=== PATIENT | female | born 1930 | race Caucasian/White ===

== ENCOUNTER → 2016-06-16 | Outpatient (CLI) | payer OTHER ==
[~2016-06-16] MED LIST: CELEBREX200 MG PO; COMTAN200 MG PO; MULTIPLE VITAMI1 CAP PO; NORCO 325 MG-51 TAB PO; OCUVITE1 TA1 PO; OMEPRAZOLE40 MG PO; PAXIL20 MG PO; PRILOSEC20 M1 PO; SINEMET 25-2501 TA1 PO; SINEMET 25-2501 TAB PO; VITAMIN D400 I1 PO; [UNRECOGNIZED DRUG - REMARK]
--- NOTE | ~2016-06-16 | WRIGHTHP ---
[place], [place] PATIENT HISTORY AND PHYSICAL EXAM NAME: [facility]: [id number] UNIT #: [id number] ROOM: DOCTOR: CARINE LynnMORRIS BIRTHDATE: [birth year] DOS: 06/16/2016 CHIEF COMPLAINT: The patient has been seen in our wound center before for an open ulcer of the left foot on the third toe secondary to severe callus formation. She comes in today with a chief complaint of that callus reoccurring on that left toe as well as an open ulcer of the left ankle on the lateral side. HISTORY OF PRESENT ILLNESS: This is an 86-year-old female with severe Parkinson disease, severe debility and difficulty ambulating, who apparently was recently admitted and discharged from the hospital after a fall secondary to severe debility. It was felt that she would benefit from rehabilitation at a detention facility; however, the patient was adamant about going home. She does go home, she lives at home by herself now and her neighbor can come and help her put the dressings on. She has an open ulcer at the left ankle. It is actually more of an abrasion from her fall. She has been using bacitracin on it and it is somewhat tender to touch. No fevers or chills are noted. She does report that she was able to get new shoes, but she does not quite like them. She has a platform power technician who comes to her house to take care of podiatric complaints for her; however, she says that the callus was not trimmed that she is aware of. She offers no other specific complaints. PHYSICAL EXAMINATION: VITAL SIGNS: Stable. Blood pressure is 140/60, pulse of 80, respirations 16, temperature is 98.2. EXTREMITIES: She has a wound measured on the lateral side of the left ankle that is measuring 0.2 x 0.6 x 0.1, it is fairly superficial. There is no sign of cellulitis or purulence. It is mildly tender to touch. There is minimal necrotic tissue present in the base of the wound, otherwise, it looks fairly clean. There is also a hyperkeratotic callus that is protruding from the left foot at the tip of the third toe that has a slight discoloration from what appears to be repetitive bleeding, periodically, it is not open at this time. She did request for me to trim the callus. After this was cleansed with a sterile alcohol wipe, a #15 blade was used to trim the callus down. I still do not see any open areas after this was done. The wound does not seem to be open at this time. Her ABIs are 1.03 on the left and 1.01 on the right. She has some neuropathy noted on her feet during the foot assessment. Pedal pulses are palpable. Toes are warm. ASSESSMENT AND PLAN: Abrasion of the left lateral ankle, use Bactroban empirically and cover it with foam and have her change it every other day. As far as her repetitive callus, it does cause her discomfort when it gets quite thick, this was trimmed today. She should have this trimmed periodically by Podiatry to avoid it becoming so thickened in the future. The patient is to follow up with us in one week. [place], [place] PATIENT HISTORY AND PHYSICAL EXAM NAME: ANETTE QUINTANA UNIT #: [id number] ROOM: DOCTOR: MORRIS HAWK M.D. BIRTHDATE: [birth year] MORRIS HAWK MD CM:HISPHYS:PATIENT HISTORY AND PHYSICAL EXAMINATION [id number] MORRIS HAWK M.D. 06/16/16 1623 interface
== END ==
LOC: WOUNDCARE 01:41
DX: L97.321 Non-pressure chronic ulcer of left ankle limited to breakdown of skin (principal); S90.512D Abrasion, left ankle, subsequent encounter; L97.521 Non-pressure chronic ulcer of other part of left foot limited to breakdown of skin; G20 Parkinson's disease; L84 Corns and callosities; X58.XXXD Exposure to other specified factors, subsequent encounter

== ENCOUNTER → 2016-06-23 | Outpatient (CLI) | payer OTHER ==
--- NOTE | ~2016-06-23 | PR ---
[place], [place] PROGRESS NOTE NAME: [facility] [id number] UNIT #: [id number] ROOM: DOCTOR: MORRIS HAWK M.D. BIRTHDATE: [birth year] DOS: 06/23/2016 CHIEF COMPLAINT: Followup of ulcer of the left lateral ankle as well as a chronic callus of the tip of the third toe on the left foot. She comes in today without any specific complaints. We were using an antibiotic ointment as well as a foam over her ankle wound. She noticed a little bit of drainage on the pad, but she says home health has not been able to get the foam that was ordered, so they have just been using Band-Aids. No fevers or chills are noted. OBJECTIVE: VITAL SIGNS: Temperature is 97.8, pulse is 68, respirations 18, blood pressure is 120/62. WOUND EXAMINATION: The wounded area is measuring approximately the same at 0.2 x 0.6 x 0.1. It looks really good. It appears almost healed. The redness seems improved as well, and there is no sign of an acute infection. No debridement was done. ASSESSMENT AND PLAN: Abrasion of the left lateral ankle. I would at this time just continue to use the foam without any topicals for now and have her follow up with us in one week. MORRIS HAWK MD CM:PNTRANS [phone] MORRIS HAWK M.D. 06/24/16 033 interface
== END ==
LOC: WOUNDCARE 04:43
DX: S90.512D Abrasion, left ankle, subsequent encounter (principal); L84 Corns and callosities; X58.XXXD Exposure to other specified factors, subsequent encounter

== ENCOUNTER → 2016-07-02 | Outpatient (CLI) | payer OTHER ==
--- NOTE | ~2016-07-02 | PR ---
[place], [place] PROGRESS NOTE [id number] UN[facility] #: [id number] ROOM: DOCTOR: MORRIS HAWK M.D. BIRTHDATE: [birth year] DOS: 07/02/2016 CHIEF COMPLAINT: Followup an abrasion of the left lateral ankle as well as recurrent chronic callus at the tip of the third toe. She thinks that the wound has healed. She is having no specific complaints with the ankle. It is not draining anything. She does have recurrent callus formation on the tip of the third digit of the left toe and would like me to pare this down for her today. It does cause some discomfort. PHYSICAL EXAMINATION: VITAL SIGNS: She is afebrile, pulse is 64, respirations 18, blood pressure is 118/60. WOUND EXAMINATION: The wound on the left lateral leg is healed. She does have a callused area that was on the third digit of the left toe, at the very tip this plantar aspect. This was pared down with a #15 blade. There was no open wound underneath. ASSESSMENT AND PLAN: Healed abrasion and recurrent callus pared down today in the wound clinic. The patient will be discharged today and is to follow up if need be. MORRIS HAWK MD CM:PNTRANS [id number] MORRIS HAWK M.D. 07/03/16 0938 interface
== END ==
LOC: WOUNDCARE 02:49
DX: S90.512D Abrasion, left ankle, subsequent encounter (principal); L84 Corns and callosities; X58.XXXD Exposure to other specified factors, subsequent encounter

== ENCOUNTER 2016-08-25 13:24 | Inpatient (IN) | payer OTHER ==
[~2016-08-25] VITALS: Ht 172.7 cm; Wt 89.0 kg
--- NOTE | ~2016-08-25 | WRIGHTHP ---
[place], [place] PATIENT HISTORY AND PHYSICAL EXAM [id number] UNIT #: [id number] ROOM: 411 DOCTOR: PREM RADFORD MD BIRTHDATE: [birth year] DOS: 08/25/2016 HISTORY OF PRESENT ILLNESS: The patient is an 86-year-old female with a past medical history of: 1. Parkinson's disease. 2. Adult failure to thrive. 3. Bilateral knee replacements. 4. Left hip replacement. 5. Coronary artery disease of the [place] vessels, by history. The patient presented to the Emergency Department with 1-hour complaints of epigastric severe sharp pains radiating into the back with some nausea but no vomiting, no diaphoresis and no shortness of breath. The patient says that the pains were resolving on its own when the ambulance arrived. The patient also had some tingling and sensation in her jaw. After initial evaluation in the Emergency Department, the patient was recommended for admission and further management. The patient has been seen by Dr. Jim Sanchez now, the brush worker. No dizziness or fainting episodes. No other GI or urinary symptoms. The patient is completely asymptomatic after admission to the hospital. REVIEW OF SYSTEMS: LUNGS: No shortness of breath or wheezing. GASTROINTESTINAL: The patient had some nausea, which has resolved. Abdominal pains, epigastric pains have also resolved. CARDIOVASCULAR SYSTEM: No chest pains or palpitations. FAMILY HISTORY: Noncontributory. SOCIAL HISTORY: The patient lives by herself. Denies smoking cigarettes, alcohol or any drug abuse. HOME MEDICATIONS: The patient takes omeprazole, Sinemet and Comtan. ALLERGIES: KNOWN ALLERGIES TO PENICILLIN. PHYSICAL EXAMINATION: GENERAL: Alert and oriented x 3, in no visible distress. HEENT AND NECK: Extraocular movements are intact. Sclerae are anicteric. Oral mucosa is moist and clean. No obvious facial weakness. Neck is supple without any lymphadenopathy. No thyromegaly. No JVD. No carotid arterial bruits. LUNGS: Clear to auscultation. No wheezing. No rhonchi. CARDIOVASCULAR SYSTEM: Heart rate is regular in rate and rhythm. S1 and S2 normally audible. No significant murmur or any other abnormal cardiac sounds. ABDOMEN: Soft, nontender. No obvious organomegaly. Bowel sounds are present. No obvious herniation. EXTREMITIES: Without significant cyanosis or edema. Warm to touch. CENTRAL NERVOUS SYSTEM: Alert and oriented x 3. Cranial nerves II-XII are intact. Speech is normal. The patient is able to move all extremities. Normal muscle strength. Deep tendon reflexes are equal on both sides. Plantars were [place], [place] PATIENT HISTORY AND PHYSICAL EXAM NAME: ANETTE QUINTANA UNIT #: [id number] ROOM: 411 DOCTOR: PREM RADFORD MD BIRTHDATE: [birth year] downgoing. IMPRESSION AND PLAN: 1. The patient with severe epigastric sharp pains for about an hour from uncertain etiology. The patient has been admitted and cardiac enzymes are being performed. Dr. Jim Sanchez, the brush worker is also following her. The pains are not typical for coronary artery disease or angina. The patient has some history of coronary artery disease in the past. 2. Abnormal chest x-ray, which will be further evaluated with a PA and lateral chest x-ray tomorrow. 3. Parkinson's disease, treated with Sinemet and Comtan, which is being continued and I am consulting physical therapy because she does have a history of falls in the past. PREM RADFORD MD CM:HISPHYS:PATIENT HISTORY AND PHYSICAL EXAMINATION 13 46 PREM RADFORD MD 08/25/161846 interface
--- NOTE | ~2016-08-25 | DS ---
[place], [place] DISCHARGE SUMMARY NAME: ANETTE QUINTANA UNIT #: [id number] ROOM: 411 DOCTOR: PREM RADFORD MD BIRTHDATE: [birth year] DOS: 08/26/2016 DISCHARGE DIAGNOSES: 1. The patient with severe epigastric pain going into her back, ruled out for myocardial infarction with serial cardiac enzymes and seen by director learning services. 2. Parkinson disease. 3. Urinary tract infection with heavy gram-negative bacilli. 4. Coronary artery disease of the [place] vessels by history. 5. History of left hip replacement. 6. Bilateral knee replacements. 7. Adult failure to thrive. HOSPITAL COURSE: The patient presented to the Emergency Department at [facility] with 1 hour complaints of severe epigastric, severe sharp pain radiating at the back and the jaw with some nausea, but no diaphoresis, no shortness of breath. The patient's pain was resolving when the ambulance arrived. The patient was admitted and ruled out for myocardial infarction with serial cardiac enzymes and was also seen by director learning services who did not consider patient's pains to be cardiac. The patient with a urinary tract infection with urine cultures growing more than 100,000 colonies of heavy gram-negative bacilli, for which she has been started on treatment with Bactrim DS and she will follow up with her PCP in less than a week. No leukocytosis. 1. Parkinson disease with disability. The patient worked with physical therapy. 2. Left hip replacement, bilateral knee replacement and adult failure to thrive. 3. Coronary artery disease of the [place] vessels by history without any chest pains anymore. The patient was admitted when she presented to the Emergency Department 1 hour complaints of epigastric pains, which had resolved. All cardiac enzymes came back to be negative and director learning services, Dr. Jim Sanchez decided against any further cardiac workup because the complaints were not typical for angina. The patient was found to have urinary tract infection with heavy gram-negative bacilli, for which she is being started on Bactrim DS b.i.d. for a week and she will follow up with her PCP. Parkinson disease, chronically on Sinemet and Comtan, which was continued during her hospital stay and again she will take it at home after discharge. There was abnormality on the chest x-ray, which was clarified with the chest x-ray, PA and lateral, which came out to be normal. LABORATORY DATA: All cardiac enzymes were negative. DISCHARGE MANAGEMENT: Bactrim DS b.i.d. for 1 week, Comtan 200 mg b.i.d., Sinemet 25/250 every 6 hours. [place], [place] DISCHARGE SUMMARY NAME: ANETTE QUINTANA UNIT #: [id number] ROOM: 411 DOCTOR: PREM RADFORD MD BIRTHDATE: [birth year] PREM RADFORD MD CM:PIO [id number] 00 PREM RADFORD MD 08/26/16 190 interface
[2016-08-25 13:24] VITALS: BP 146/44
[2016-08-25 13:42] LABS: BASO % 0.6 % (0.0-1.0); EOS # 0.1 10*3/uL (0.0-0.4); EOS % 2.6 % (1.0-4.0); HEMATOCRIT 42.3 % (37.0-47.0); HEMOGLOBIN 13.4 g/dl (12.0-16.0); LYMPH # 1.4 10*3/uL (1.3-4.4); LYMPH % 28.3 % (27.0-41.0); MEAN CELL VOLUME 98.4 fl (81.0-99.0); MEAN CORPUSCULAR HGB 31.2 pg (27.0-31.0); MEAN CORPUSCULAR HGB CONC 31.7 g/dl (33.0-37.0); MEAN PLATELET VOLUME 9.6 fl (9.6-12.3); MONO # 0.3 10*3/uL (0.1-1.0); MONO % 6.6 % (3.0-9.0); NEUT # 3.1 10*3/uL (2.3-7.9); NEUT % 61.7 % (47.0-73.0); PLATELET COUNT AUTOMATED 192 10*3/uL (130-400); RED CELL DISTRI WIDTH 12.8 % (0-14.5)
[2016-08-25 13:50] LABS: PROTHROMBIN TIME 10.3 SECONDS (9.0-12.4)
[2016-08-25 13:59] LABS: ALBUMIN 3.4 gm/dl (3.1-4.5); ALKALINE PHOSPHATASE 93 U/L (45-117); BILIRUBIN, TOTAL 0.6 mg/dl (0.2-1.0); BUN 20 mg/dl (7-24); CARBON DIOXIDE 29 mmol/L (21-32); CHLORIDE 110 mmol/L (98-107); EST GLOM FILT AFRICAN AMERICAN 52 ml/min; GLUCOSE 103 mg/dL (65-99); MAGNESIUM 1.9 mg/dL (1.5-2.1); SGOT/AST 70 IU/L (3-35); SGPT/ALT 12 U/L (12-78); SODIUM 146 mmol/L (136-145); TOTAL PROTEIN 6.9 gm/dL (6.4-8.2)
[2016-08-25 14:01] LABS: TROPONIN I < 0.015 ng/ml (<0.045)
[2016-08-25 16:00] VITALS: BP 148/62
[2016-08-25 17:32] LABS: BILIRUBIN NEGATIVE (NEGATIVE); BLOOD TRACE-LYSED (NEGATIVE); CLARITY SL CLOUDY (CLEAR); COLOR YELLOW (YELLOW); GLUCOSE NEGATIVE (NEGATIVE); KETONE NEGATIVE (NEGATIVE); LEUKO ESTERASE 2+ (NEGATIVE); NITRITE POSITIVE (NEGATIVE); PH 5.5 (5.0-9.0); PROTEIN NEGATIVE (NEGATIVE); SPECIFIC GRAVITY <= 1.005 (1.005-1.030); UROBILINOGEN 0.2 E.U./dl (0.2-1.0)
[2016-08-25 17:46] LABS: BACTERIA 3+; EPITHELIAL CELLS 0-2; RBC 0-2 rbc/hpf (0-2); URINE REFLEX COMMENT YES (NO)
[2016-08-25 21:12] VITALS: BP 158/54
[2016-08-26] VITALS: BP 153/54
[2016-08-26 07:17] LABS: BASO % 0.4 % (0.0-1.0); EOS # 0.2 10*3/uL (0.0-0.4); EOS % 3.3 % (1.0-4.0); HEMATOCRIT 40.9 % (37.0-47.0); LYMPH # 1.4 10*3/uL (1.3-4.4); LYMPH % 25.9 % (27.0-41.0); MEAN CELL VOLUME 97.8 fl (81.0-99.0); MEAN CORPUSCULAR HGB 31.1 pg (27.0-31.0); MEAN CORPUSCULAR HGB CONC 31.8 g/dl (33.0-37.0); MEAN PLATELET VOLUME 9.7 fl (9.6-12.3); MONO # 0.5 10*3/uL (0.1-1.0); MONO % 8.3 % (3.0-9.0); NEUT # 3.4 10*3/uL (2.3-7.9); NEUT % 61.9 % (47.0-73.0); PLATELET COUNT AUTOMATED 200 10*3/uL (130-400); RED BLOOD COUNT 4.18 10*6/uL (4.10-5.10); RED CELL DISTRI WIDTH 12.9 % (0-14.5); WHITE BLOOD COUNT 5.5 10*3/uL (4.8-10.8)
[2016-08-26 08:00] VITALS: BP 144/57
[2016-08-26 12:00] VITALS: BP 171/57
[2016-08-26 16:00] VITALS: BP 129/42
[2016-08-26] MEDS ORDERED: BACTRIM DS 8001 TAB PO (17:05)
== END 2016-08-26 17:25 | disposition home or self-care (01) | DRG 206 ==
LOC: ED 13:24 → 4E 14:18 → EDHOLD 14:18 → 4E 14:54
PROVIDERS: Internal Medicine; Student in an Organized Health Care Education/Training Program
DX: M94.0 Chondrocostal junction syndrome [Tietze] (principal); G20 Parkinson's disease; N39.0 Urinary tract infection, site not specified; R10.13 Epigastric pain; E86.0 Dehydration; K21.9 Gastro-esophageal reflux disease without esophagitis; B96.89 Other specified bacterial agents as the cause of diseases classified elsewhere; I25.10 Atherosclerotic heart disease of native coronary artery without angina pectoris; Z96.642 Presence of left artificial hip joint; R62.7 Adult failure to thrive; Z96.653 Presence of artificial knee joint, bilateral; Z79.899 Other long term (current) drug therapy; Z88.0 Allergy status to penicillin

== ENCOUNTER 2016-09-21 18:46 | Emergency (ER) | payer OTHER ==
[~2016-09-21] VITALS: Wt 88.0 kg
[2016-09-21 18:46] VITALS: BP 121/82
[~2016-09-21 18:46] MED LIST changes: +BACTRIM DS 8001 TAB PO
== END 2016-09-21 20:40 | disposition home or self-care (01) ==
LOC: ED 18:46
DX: S00.01XA Abrasion of scalp, initial encounter (principal); K21.9 Gastro-esophageal reflux disease without esophagitis; Z90.49 Acquired absence of other specified parts of digestive tract; Z88.0 Allergy status to penicillin; W18.00XA Striking against unspecified object with subsequent fall, initial encounter; Y93.89 Activity, other specified; Y92.9 Unspecified place or not applicable; Y99.9 Unspecified external cause status

== ENCOUNTER 2017-02-12 12:13 | Inpatient (IN) | payer OTHER ==
[~2017-02-12] VITALS: Ht 170.2 cm; Wt 84.3 kg
[2017-02-12] VITALS (7 sets, daily range): BP systolic 144–172; BP diastolic 50–68
--- NOTE | ~2017-02-12 | PR ---
[place], [place] PROGRESS NOTE NAME: ANETTE QUINTANA UNIT #: [id number] ROOM: [place] DOCTOR: PREM RADFORD MD BIRTHDATE: [birth year] DOS: 02/13/2017 OBJECTIVE: VITAL SIGNS: Blood pressure 149/54, heart rate 84 beats, breathing 18 times per minute, temperature 98 degrees Fahrenheit. GENERAL APPEARANCE: Obesity and generalized weakness and patient appears agitated. HEENT AND NECK: Exam within normal limits. CARDIOVASCULAR SYSTEM: Heart rate is regular in rate and rhythm. S1 and S2 normally audible. LUNGS: Clear to auscultation. ABDOMEN: Soft, nontender. No obvious organomegaly. Bowel sounds are present. EXTREMITIES: Without significant cyanosis or edema. IMPRESSION: 1. Patient with sundowning and ICU psychosis and she is feeling that nurses are conspiring against her and she wants to go home. I am getting a psych consult and giving her 20 mg of Geodon IM. 2. One episode of rapid atrial fibrillation, which has resolved. Patient is in normal sinus rhythm. The episode of hypertension and atrial fibrillation with rapid ventricular response could have been induced by dose of epinephrine that she received for Bactrim allergy. 3. ALLERGY TO BACTRIM AND SKIN RASH, resolved with treatment. 4. History of coronary artery disease without chest pains. 5. Parkinson's disease, being treated. Patient working with physical therapy. 6. Echocardiogram pending because patient is too suspicious and paranoid to get the echocardiogram performed. We will try again in half an hour and see if we can get an echocardiogram to look for blood clots. PREM RADFORD MD CM:PNTRANS 1822 PREM RADFORD MD 02/14/1721 interface
--- NOTE | ~2017-02-12 | WRIGHTHP ---
[place], [place] PATIENT HISTORY AND PHYSICAL EXAM NAME: ANETTE QUINTANA [facility] #: [id number] UNIT #: [id number] ROOM: [place] [address] DOCTOR: PREM RADFORD MD BIRTHDATE: [birth year] DOS: 02/12/2017 HISTORY OF PRESENT ILLNESS: The patient is an 86-year-old female with a past medical history of: 1. Parkinson's disease. 2. Coronary artery disease of the [place] vessels. 3. History of left hip replacement. 4. Bilateral knee replacements. 5. Adult failure to thrive. 6. Gastroesophageal reflux disease and esophagitis. The patient presented to the Emergency Department at [facility] when she developed a skin rash from Bactrim-DS, which was given to her for recent urinary tract infection. The patient was given epinephrine and prednisone for treatment and later on in the Emergency Department, she was found to be in atrial fibrillation with rapid ventricular response of about 170 beats per minute. The patient's blood pressure was also found to be elevated at 172 systolic over 67 diastolic. The patient was treated with IV diltiazem and the heart rate improved and she came back to normal sinus rhythm. The patient says she felt some chest pains and felt dizzy at this time. No fainting episodes. No nausea, vomiting, diarrhea or constipation. REVIEW OF SYSTEMS: LUNGS: No increasing shortness of breath or wheezing. GASTROINTESTINAL: No nausea, vomiting, diarrhea, constipation. CARDIOVASCULAR: The patient developed some palpitations and chest pains sometime after she was given epinephrine, but now she is asymptomatic. FAMILY HISTORY: Noncontributory. ALLERGIES: KNOWN ALLERGIES TO PENICILLIN AND SULFA WHICH IS BACTRIM. HOME MEDICATIONS: Pyridium, omeprazole, Sinemet. PHYSICAL EXAMINATION: GENERAL: Alert, oriented x 3, in no visible distress. Generalized weakness. HEENT AND NECK: Extraocular movements are intact. Sclerae are anicteric. Oral mucosa is moist and clean. No obvious facial weakness. Neck is supple without any lymphadenopathy. No thyromegaly. No JVD. No carotid arterial bruits. LUNGS: Clear to auscultation. No wheezing. No rhonchi. CARDIOVASCULAR SYSTEM: Heart rate is regular in rate and rhythm. S1 and S2 normally audible. No significant murmur or any other abnormal cardiac sounds. ABDOMEN: Soft, nontender. No obvious organomegaly. Bowel sounds are present. No obvious herniation. EXTREMITIES: Without significant cyanosis or edema. Warm to touch. CENTRAL NERVOUS SYSTEM: Alert and oriented x 3. Cranial nerves II-XII are intact. Speech is normal. The patient is able to move all extremities. Normal muscle strength. Deep tendon reflexes are equal on both sides. Plantars were downgoing. IMPRESSION: [place], [place] PATIENT HISTORY AND PHYSICAL EXAM NAME: ANETTE QUINTANA UNIT #: [id number] ROOM: [place] [address] DOCTOR: PRABHAKAR GIORDANO,PREM Stokes BIRTHDATE: [birth year] 1. The patient with old age and adult failure to thrive. I will consult Physical Therapy. 2. The patient with atrial fibrillation with rapid ventricular response, which may have been induced after she was given epinephrine for acute drug reaction to Bactrim-DS. The patient's tachycardia and atrial fibrillation resolved after she was given IV Cardizem and she is in a normal sinus rhythm now. 3. Acute hypertensive reaction, probably to epinephrine. Blood pressures will be monitored and treated. 4. Parkinson disease, old age and adult failure to thrive. The patient to work with physical therapy. We will also take bedsore precautions, turn her every 2 hours and use an air mattress. 5. For urinary tract infection, I will keep her on ciprofloxacin. There is no leukocytosis, but she has some left shift with neutrophils 96% on CBC. 6. Cardiology consult obtained. We will watch the patient closely in the ICU for now because of her earlier tachycardia along with atrial fibrillation. PREM RADFORD MD CM:HISPHYS:PATIENT HISTORY AND PHYSICAL EXAMINATION 02 49 PREM RADFORD MD 02/12/172250 interface
--- NOTE | ~2017-02-12 | PR ---
[place], [place] PROGRESS NOTE NAME: ANETTE QUINTANA UNIT #: [id number] ROOM: [facility] DOCTOR: AIMEE NAVARRETE MD BIRTHDATE: [birth year] DOS: SUBJECTIVE: The patient was admitted after developing a drug rash and near anaphylaxis, was placed on IV steroids and admitted to the floor. She became quite confused, combative, paranoid and agitated and tried to throw a walker at the nursing staff. She was given Geodon, which seems to have calmed her down. She also was moved to a room with a large window. This morning she woke up from sleep. She was startled when she woke up. She did not recognize me and did remember the events leading to her admission, but not about her confused state of mind yesterday. When asked where she was, she was pointing to the aide that she was at her house. She denies having any chest pains, palpitations, does not have any fever or chills, does not have any abdominal pain, nausea, emesis. I was able to reorient her and she remembered she was in the hospital. OBJECTIVE: VITAL SIGNS: Graphic trend shows a pressure 134/61, pulse of 60, respirations 19, temperature 98.7. LUNGS: Diminished breath sounds. No wheezes, rales, rhonchi heard. HEART: Regular. ABDOMEN: Obese, soft, nontender. EXTREMITIES: Without any edema. ASSESSMENT AND PLAN: 1. Drug reaction to Bactrim, which is now resolved. We will discontinue IV steroids. 2. Psychosis with metabolic encephalopathy, possibly from the UTI as well as IV steroids. IV antibiotics have been started and discontinue steroids. The patient does not have a rash. 3. Benign hypertension. Blood pressures are controlled. She had 1 episode of atrial fibrillation, which has since resolved. She is on Xarelto. Cardiology to make the decision on whether the patient should go home on this medicine. AFib could have been from the stress from the drug reaction as well as the epinephrine. 4. Urinary tract infection with gram-negative bacteria, identification is not available. The patient is placed on IV antibiotics. We will wait until the final cultures have come back to decide on discharge planning. [place], [place] PROGRESS NOTE NAME: ANETTE QUINTANA UNIT #: [id number] ROOM: [facility] DOCTOR: AIMEE NAVARRETE MD BIRTHDATE: [birth year] AIMEE NAVARRETE MD CM:PNTRANS [id number] AIMEE NAVARRETE MD 02/14/17 0841 interface
--- NOTE | ~2017-02-12 | PR ---
[place], [place] PROGRESS NOTE NAME: ANETTE QUINTANA UNIT #: [id number] ROOM: 410 DOCTOR: AIMEE NAVARRETE MD BIRTHDATE: [birth year] DOS: 02/15/2017 SUBJECTIVE: The patient feels okay this morning. She does not have any episodes of confusion. OBJECTIVE: VITAL SIGNS: Graphic trend shows a pressure of 154/68, pulse of 68, respirations 20, temperature 98.0. LUNGS: Diminished breath sounds, clear. HEART: Regular. ABDOMEN: Obese, soft, nontender. EXTREMITIES: Without any edema. LABORATORY DATA: Glucose 140, BUN 29, creatinine 1.05. Electrolytes were normal. MRSA of the nares negative. Urine culture shows Proteus mirabilis. ASSESSMENT AND PLAN: 1. Urinary tract infection, Proteus mirabilis, on IV Cipro. 2. Metabolic encephalopathy, seems to be resolving, possibly from underlying urinary tract infection. 3. Drug rash, which has resolved. 4. Paroxysmal atrial fibrillation, already on medications. Social service has been consulted for possible SNF placement. AIMEE NAVARRETE MD CM:PNTRANS [id number] AIMEE NAVARRETE MD 02/17/17 0451 interface
--- NOTE | ~2017-02-12 | PR ---
[place], [place] PROGRESS NOTE NAME: ANETTE QUINTANA UNIT #: [id number] ROOM: 410 DOCTOR: AIMEE NAVARRETE MD BIRTHDATE: [birth year] DOS: 02/16/2017 SUBJECTIVE: The patient is doing well, does not have any new complaints, did not have any periods of confusion in the last 24 hours. OBJECTIVE: VITAL SIGNS: Graphic trend shows a pressure 163/56, pulse of 60, respirations 18, temperature 97.9. LUNGS: Clear. HEART: Regular. ABDOMEN: Soft. EXTREMITIES: Without any edema. LABORATORY DATA: BMP this morning, glucose 140, BUN 29, creatinine 1.05, GFR 50, sodium 142, potassium 4.4. MRSA of the nares was negative. Urine culture: Proteus mirabilis. ASSESSMENT AND PLAN: 1. The patient with drug reaction, which has resolved. 2. Metabolic encephalopathy from urinary tract infection for which she is on IV antibiotics, encephalopathy has resolved. 3. Adult failure to thrive. The patient has refused fpc placement. The plan is to discharge her to home tomorrow. 4. For paroxysmal atrial fibrillation, on long-term use of anticoagulants, as per Cardiology to be continued. Discussed with case management. Plan is to discharge her to home with [facility] and PT, OT. AIMEE NAVARRETE MD CM:PNTRANS [id number] AIMEE NAVARRETE MD 02/17/17 0113 interface
--- NOTE | ~2017-02-12 | DS ---
Telephone, [place] DISCHARGE SUMMARY NAME: [id number] UNIT #: [id number] ROOM: 410 DOCTOR: PREM RADFORD MD BIRTHDATE: [birth year] DOS: 02/17/2017 DISCHARGE DIAGNOSES: 1. Paroxysmal atrial fibrillation. The patient started on anticoagulation. 2. Urinary tract infection with resistant Proteus mirabilis. 3. Delirium and mental confusion and psychosis, resolved with treatment. 4. Benign essential hypertension. 5. Drug allergy to BACTRIM with allergic reaction. 6. Parkinson's disease. 7. Old age and advanced disability and failure to thrive. 8. Coronary artery disease of [place] vessels. 9. History of left hip replacement. 10. History of bilateral knee replacements. 11. Gastroesophageal reflux disease and esophagitis. HOSPITAL COURSE: The patient developed a skin rash from BACTRIM-DS and showed up in the Emergency Department. The patient had a urinary tract infection, which was being treated with BACTRIM. The patient initially given epinephrine and then prednisone and then she was found to be in atrial fibrillation with hypertension. Heart rate had increased to 170 beats per minute and blood pressure was found to be elevated to 172/67. The patient was started on IV diltiazem and heart rate improved and patient went back in to normal sinus rhythm. Dr. Sanchez, the silk screen printer machine decided to start anticoagulation with Xarelto and also added metoprolol to the treatment and blood pressure and heart rates have been stable. Case discussed with Dr. Sanchez who has recommended that Xarelto should be continued. Acute psychosis with delirium resulting from E. coli infection and urinary tract infection and cystitis, which have resolved while the patient was being treated with ciprofloxacin. Parkinson's disease and adult failure to thrive. The patient worked with Physical Therapy and she is walking with the help of a walker. The patient lives at home with the help of her family. We took bedsore precautions. Parkinson's disease, being treated with Sinemet. LABORATORY DATA: BUN and creatinine 29 and 1.04, blood sugar 140. Normal serum electrolytes. Urine culture results as mentioned above. Cardiac enzymes were negative. DISCHARGE MANAGEMENT: Xarelto 20 mg daily, metoprolol 25 mg daily, omeprazole 40 mg a day, Sinemet 25/250 mg every 6 hours, liquid tears eye drops 1 drop each eye q. 1 hour as needed, ciprofloxacin 500 mg twice a day for a week. FOLLOWUP: With me in my office this week. Telephone, [place] DISCHARGE SUMMARY NAME: ANETTE QUINTANA UNIT #: [id number] ROOM: 410 DOCTOR: PREM RADFORD MD BIRTHDATE: [birth year] PREM RADFORD MD CM:PIO [id number] PREM RADFORD MD 02/17/173 interface
--- NOTE | 2017-02-12 12:33 | NUR ---
PT RESTING ON CART PULSE OX AT 100% VOICES NO COMPLAINTS. TAPAN DIXON RN.
[2017-02-12 14:18] LABS: BILIRUBIN NEGATIVE (NEGATIVE); BLOOD TRACE-INTACT (NEGATIVE); CLARITY SL CLOUDY (CLEAR); COLOR YELLOW (YELLOW); GLUCOSE NEGATIVE (NEGATIVE); KETONE NEGATIVE (NEGATIVE); LEUKO ESTERASE 3+ (NEGATIVE); NITRITE POSITIVE (NEGATIVE); PH 6.5 (5.0-9.0); SPECIFIC GRAVITY <= 1.005 (1.005-1.030); UROBILINOGEN 0.2 E.U./dl (0.2-1.0)
[2017-02-12 14:30] LABS: BACTERIA 3+; EPITHELIAL CELLS 0-2; WBC 51-100 wbc/hpf (0-5)
[2017-02-12] MEDS ORDERED: EPIPEN 2-P0.3 MG/0.3 IJ (14:40)
[2017-02-12] MEDS ORDERED: PYRIDIUM200 M1 PO (14:40)
[2017-02-12] MEDS ORDERED: CIPRO500 MG PO (14:40)
[2017-02-12] MEDS ORDERED: PREDNISONE10 MG PO (14:42)
--- NOTE | 2017-02-12 15:03 | NUR ---
PT TRIED CALLING FAMILY FOR A RIDE HOME. STATES NO ONE IS HOME AND THE NEIGHBORS HAVE COMPANY. PT IS GOING TO FINISH EATING AND HTEN TRY FOR A RIDE IN A FEW MINUTES. TAPAN DIXON RN.
[2017-02-12 16:52] LABS: ALBUMIN 3.4 gm/dl (3.1-4.5); ALKALINE PHOSPHATASE 72 U/L (45-117); BUN 19 mg/dl (7-24); CHLORIDE 109 mmol/L (98-107); CREATININE 1.14 mg/dL (0.55-1.02); POTASSIUM 3.8 mmol/L (3.5-5.1); SGOT/AST 15 IU/L (3-35); SGPT/ALT 8 U/L (12-78); SODIUM 139 mmol/L (136-145)
[2017-02-12 16:55] LABS: TROPONIN I < 0.015 ng/ml (<0.045)
[2017-02-12 17:44] LABS: HEMATOCRIT 41.3 % (37.0-47.0); HEMOGLOBIN 13.3 g/dl (12.0-16.0); MEAN CORPUSCULAR HGB 30.9 pg (27.0-31.0); MEAN CORPUSCULAR HGB CONC 32.2 g/dl (33.0-37.0); MEAN PLATELET VOLUME 9.7 fl (9.6-12.3); PLATELET COUNT AUTOMATED 185 10*3/uL (130-400); RED CELL DISTRI WIDTH 12.6 % (0-14.5); WHITE BLOOD COUNT 9.3 10*3/uL (4.8-10.8)
[2017-02-12 18:15] LABS: PLATELET SUFFICIENCY NORMAL (NORMAL); TOTAL CELLS COUNTED 100 #CELLS
--- NOTE | 2017-02-12 18:50 | NUR ---
A 86, admitted to ICCU, under the services of Dr. PRABHAKAR GIORDANO,PREM Stokes with a diagnosis of UTI,ELEVATED BP,AFIB RVR. Chief complaint is RACING HEART. Patient arrived via stretcher from ER. Monitor applied. Initial assessment completed. Vital signs taken and recorded. DR. PRABHAKAR GIORDANO,PREM Stokes notified of admission to the unit. Orders received. See assessment for past medical history, medications and allergies. Patient and/or family oriented to unit. [facility] ICCU visitation policy reviewed. Clothing/patient valuable form completed. FRANDY EMANUEL
[2017-02-12] MEDS ORDERED: OCCUVITE PO (18:55)
[2017-02-12] MEDS ORDERED: VITAMIN D32000 UNI1 PO (18:56)
--- NOTE | 2017-02-12 19:39 | NUR ---
[facility] CARDIOLOGY ANSWERING SERVICE GIVEN INFORMATION ON CONSULTATION.
--- NOTE | 2017-02-12 19:45 | NUR ---
DR RICH NOTIFIED OF CONSULTATION, NO NEW ORDERS.
--- NOTE | 2017-02-12 20:27 | NUR ---
CARDIZEM DRIP CONTINUES AT 5MG/HR. MONITOR NSR. NO VOICED COMPLAINTS. SHE ATE A BOXED LUNCH. NO DIFFICULTY SWALLOWING. SEE ALL APPROPRIATE INTERVENTIONS.
--- NOTE | 2017-02-12 21:22 | NUR ---
UP TO BSC WITH MODERATE ASSIST OF TWO. PULSE OX 89% ON ROOM AIR. NASAL O2 APPLIED AT 2L/MIN.
--- NOTE | 2017-02-12 22:16 | NUR ---
PO TYLENOL 325 PER PT REQUEST FOR HEADACHE AND "THE HEEBIE-JEEBIES".
--- NOTE | 2017-02-12 22:55 | NUR ---
EYES CLOSED, RESPIRATIONS EASY SINCE EARLIER TYLENOL. NSR CONTINUES.
[2017-02-13] VITALS (9 sets, daily range): BP systolic 124–154; BP diastolic 53–61
--- NOTE | 2017-02-13 02:50 | NUR ---
UP TO BSC WITH ASSIST TO VOID. ONLY SLEEPS AT INTERVALS.
[2017-02-13 05:57] LABS: BUN 18 mg/dl (7-24); CHLORIDE 111 mmol/L (98-107); CREATININE 0.99 mg/dL (0.55-1.02); POTASSIUM 4.3 mmol/L (3.5-5.1); SODIUM 142 mmol/L (136-145)
[2017-02-13 06:07] LABS: HEMATOCRIT 39.5 % (37.0-47.0); HEMOGLOBIN 12.6 g/dl (12.0-16.0); LYMPH # 0.6 10*3/uL (1.3-4.4); LYMPH % 8.1 % (27.0-41.0); MEAN CELL VOLUME 97.1 fl (81.0-99.0); MEAN CORPUSCULAR HGB CONC 31.9 g/dl (33.0-37.0); MEAN PLATELET VOLUME 10.4 fl (9.6-12.3); MONO # 0.1 10*3/uL (0.1-1.0); MONO % 1.4 % (3.0-9.0); PLATELET COUNT AUTOMATED 197 10*3/uL (130-400); RED BLOOD COUNT 4.07 10*6/uL (4.10-5.10); RED CELL DISTRI WIDTH 12.7 % (0-14.5); WHITE BLOOD COUNT 7.7 10*3/uL (4.8-10.8)
--- NOTE | 2017-02-13 07:31 | NUR ---
Shift chart check completed.24 HR chart check completed.
--- NOTE | 2017-02-13 09:26 | NUR ---
PHYSICAL THERAPY PAtient on phone and not interested in ending call at this time. Will attempt later this date. Thank you for this referral. Analia Gonzales,PT
--- NOTE | 2017-02-13 12:45 | NUR ---
TOPROL XL BY MOUTH PER ORDER. CARDIZEM DRIP D/C PER ORDER.
--- NOTE | 2017-02-13 14:08 | NUR ---
DR DOZIER HAS VISITED. REMAINS IN NSR.
--- NOTE | 2017-02-13 15:28 | NUR ---
PHYSICAL THERAPY PAtient evaluated in ICCU, full evaluation to follow. Continue wth PT as per plan of care with fall, min to mod (A), acute debility and recent allergic reaction to medication precautions. Qualifies for SNF but question if patient willing. Will require complete home health services if d/c to home. PAtient is high complexity via chart review, tests and evaluation: [id number]. Thank you for this referral. Analia Gonzales,PT
--- NOTE | 2017-02-13 15:39 | NUR ---
SW SPOKE WITH PT ABOUT DISCHARGE PLANS. PT WANTS TO RETURN HOME WITH HOME HEALTH SERVICES. PT HAS [facility] SERVICES WITH [facility] - [facility]WAYS [facility].
--- NOTE | 2017-02-13 17:21 | NUR ---
PT IS CONFUSED AND THINKS WE ARE ALL ANGRY AT HER FOR PRAYING FOR THE PATIENT NEXT TO HER. SHE HAS SLEPT VERY LITTLE SINCE ADMISSION. SHE'S ABLE TO SAY WHERE SHE IS AND WHY SHE'S HERE. WILL NOT EAT DINNER.
--- NOTE | 2017-02-13 17:53 | NUR ---
DR RADFORD HAS VISITED AND UPDATED ON EVENTS OF TODAY. PT APPEARS TO BE SLEEPING AND HE DID NOT AWAKEN HER.
--- NOTE | 2017-02-13 18:13 | NUR ---
PT AWOKE AND WAS ASSISTED UP TO BSC. SHE THEN REFUSED TO LIE DOWN AND ATTEMPTED TO WALK AWAY. WAS COMBATIVE TOWARD STAFF. DR RADFORD CAME TO SEE PATIENT AND PT DID SIT AT THE SIDE OF THE BED. DR RADFORD IS ENTERING ORDERS ELECTRONICALLY.
--- NOTE | 2017-02-13 18:14 | NUR ---
patient not available for echo is with nursing staff. Per dr. Betts he requests a limited 2D echo. Will stop back.
--- NOTE | 2017-02-13 19:01 | NUR ---
pt refusing echo.
--- NOTE | 2017-02-13 19:01 | NUR ---
20MG IM GEODON WAS GIVEN. SHE HAS TALKED WITH HER DAUGHTER ON THE PHONE AND HER FRIEND,LADONNA, IS HERE TALKING WITH HER. SHE'S CALMER AND TALKING WITH HIM AT THIS TIME. SHE REFUSED HER 6PM MEDS.
--- NOTE | 2017-02-13 19:19 | NUR ---
CHENTE UJAN NOTIFIED OF NEW CONSULT. REVIEWED MEDS AND CONDITION WITH HER. ORDERS RECEIVED. PT IS SLEEPING QUIETLY AT THIS TIME. HER FRIEND, LADONNA, HERE, SITTING AT BEDSIDE. I HAVE TALKED WITH PT'S DAUGHTER, DICK. HER NUMBER IS IN THE BULLETIN BOARD, IS LADONNA'S.
--- NOTE | 2017-02-13 20:47 | NUR ---
24 HR chart check completed.
[2017-02-14] VITALS: BP 154/64
--- NOTE | 2017-02-14 | NUR ---
SPO2 91% ON RA. 2L NASAL CANNULA APPLIED.
[2017-02-14 04:00] VITALS: BP 134/61
[2017-02-14 05:12] LABS: BUN 25 mg/dl (7-24); CHLORIDE 111 mmol/L (98-107); CREATININE 1.02 mg/dL (0.55-1.02); POTASSIUM 4.5 mmol/L (3.5-5.1); SODIUM 143 mmol/L (136-145)
--- NOTE | 2017-02-14 06:00 | NUR ---
REFUSED AM PO MEDICATIONS.
[2017-02-14 08:00] VITALS: BP 181/62
--- NOTE | 2017-02-14 10:24 | NUR ---
CALLED DUE TO PATIENT C/O OF ITCHING AT IV SITE WITH LEVAQUIN INFUSING. NO RASH OR REDNESS NOTED. PATIENT INSISTED THAT IV BE STOPPED. NEW ORDERS RECEIVED. WILL CONTINUE TO MONITOR.
--- NOTE | 2017-02-14 10:47 | NUR ---
PATIENT STATES ITCHING HAS STOPPED NOW THAT THE LEVAQUIN HAS BEEN STOPPED. WILL CONTINUE TO MONITOR.
[2017-02-14 12:00] VITALS: BP 196/75
[2017-02-14 16:00] VITALS: BP 135/49
[2017-02-14 20:00] VITALS: BP 129/45
--- NOTE | 2017-02-14 21:00 | NUR ---
RESTING IN BED WITH NO DISTRESS NOTED. RESPIRATIONS EASY. LUNGS DIMINISHED, CLEAR. PULSE OX 93% RA, O2 PRESENT AT BEDSIDE BUT NOT IN USE. CALL LIGHT WITHIN REACH. NO VOICED COMPLAINTS
[2017-02-15] VITALS: BP 158/59
--- NOTE | 2017-02-15 | NUR ---
RESTING IN BED. NO ACUTE DISTRESS NOTED. RESPIRATIONS EASY. VSS. CALL LIGHT WITHIN REACH. BED ALARM MAINTAINED FOR SAFETY
--- NOTE | 2017-02-15 02:00 | NUR ---
RESTING WITH EYES CLOSED. RESPIRATIONS EASY. BED ALARM MAINTAINED
--- NOTE | 2017-02-15 04:00 | NUR ---
SLEEPING. NO DISTRESS NOTED. RESPIRATIONS EASY. BED ALARM MAINTAINED FOR SAFETY
--- NOTE | 2017-02-15 06:00 | NUR ---
SLEPT THROUGHOUT NIGHT WITH NO DISTRESS NOTED. RESPIRATIONS EASY. CALL LIGHT WITHIN REACH. NO VOICED COMPLAINTS THIS SHIFT. BED ALARM MAINTAINED FOR SAFETY
[2017-02-15 06:53] LABS: BUN 29 mg/dl (7-24); CHLORIDE 109 mmol/L (98-107); CREATININE 1.05 mg/dL (0.55-1.02); POTASSIUM 4.4 mmol/L (3.5-5.1); SODIUM 142 mmol/L (136-145)
[2017-02-15 08:00] VITALS: BP 122/78; BP 154/68
--- NOTE | 2017-02-15 08:17 | NUR ---
DR NAVARRETE IN TO SEE PT.
--- NOTE | 2017-02-15 11:42 | NUR ---
OOB TO CHAIR, BODY ALARM IN USE FOR PT SAFETY.
[2017-02-15 12:00] VITALS: BP 150/60
[2017-02-15 16:00] VITALS: BP 136/52
[2017-02-15 20:00] VITALS: BP 151/82
--- NOTE | 2017-02-15 20:12 | NUR ---
1954 RESTING IN BED WITH HOB ELEVATED. SIDE RAILS UP X'S 2. CALL LIGHT IN REACH. PT PLEASANT AND COOPERATIVE AT PRESENT. ALERT. HEP LOCK INTACT. NO C/O'S VOICED. BED ALARM INTACT.
--- NOTE | 2017-02-15 22:07 | NUR ---
2100 UP TO BSC TO VOID WITH 1 ASSIST. WEAK. TOLERATED FAIR.
[2017-02-16] VITALS: BP 163/56
--- NOTE | 2017-02-16 02:24 | NUR ---
RESTING IN BED WITH EYES CLOSED. APPEARS TO BE SLEEPING.
--- NOTE | 2017-02-16 06:08 | NUR ---
UP TO BSC WITH 1 ASSIST. REMAINS WEAK. HEP LOCK INTACT. NO DISTRESS NOTED. CONDITION GUARDED.
--- NOTE | 2017-02-16 07:03 | NUR ---
S;EE[ING DURING REPORT
--- NOTE | 2017-02-16 07:15 | NUR ---
Shift chart check completed.
[2017-02-16 08:00] VITALS: BP 142/56
--- NOTE | 2017-02-16 10:47 | NUR ---
SW spoke with Pt again about a short stay in a SNF. Pt wants to go home and will go to the Therapy Center at the [facility]. Pt has [facility]home [facility]est[facility]. 6 or 7 days a week.(1 3hr, 5-6 2hrs days)
--- NOTE | 2017-02-16 11:38 | NUR ---
PHYSICAL THERAPY Patient was supine in bed receiving IV antibiotic and stated she was very tired since just completing patient care at bedside. Patient requested to be seen this pm as tolerated. Jamir Remy, TRUMPET PLAYER
[2017-02-16 13:00] VITALS: BP 132/48
--- NOTE | 2017-02-16 14:03 | NUR ---
DR NAVARRETE CALLED ABOUT PATIENT WANTING TO LEAVE. NO DISCHARGE TO DAY SHE NEEDS MORE IV ANTIBIOTICS AND THAT SHE WAS TOLD THIS THIS AM.
--- NOTE | 2017-02-16 14:09 | NUR ---
ARELI FROM PHYSICAL THERAPY SPOKE WITH THE PATIENT & HER SON-IN-LAW & EVERYTHING IS SET UP AND THE PATIENT IS AGREEING TO STAY.
--- NOTE | 2017-02-16 14:37 | NUR ---
RECEIVED A CALL FROM [facility]. THEY WERE JUST CHECKING TO SEE IF SHE WAS GOING TO BE HOME IN THE AM FOR THEM TO GO SEE HER. THEY WILL CALL AGAIN TOMORROW TO SEE IF SHE HAS BEEN DISCHARGED.
--- NOTE | 2017-02-16 14:59 | NUR ---
PHYSICAL THERAPY Patient was supine in bed upon therapist arrival for pm treatemnt and reports still feeling generalized weakness. Patient transfers sup to sit EOB Mod A x 1, tolerating EOB sit x 5 minutes, SBA x 1. Patient then transfers sit to stand Min A and completes SPT to BSC, Min A x 1, requiring v/c for safe step sequence during pivot phase of transfer. Patient also able to ambulate with use of wh walker, 20'x 1, CGA/Min A, demonstrating L side scissoring gait pattern with increased fatigue and B LE weakness. Patient returned to bedside chair and remained with call light, telephone and tray table. Will continue per POC as tolerated. Jamir Remy, CORONARY CLINICAL SPECIALIST
[2017-02-16 16:00] VITALS: BP 106/46
--- NOTE | 2017-02-16 16:09 | NUR ---
PATIENT C/O RT ABDOMINAL EXCORIATION THAT SHE SAYS SHE HAS ALL THE TIME BUT ONLY WANTS NEOSPORIN APPLIED. EDUCATED THE PATIENT ABOUT DECREASING MOISTURE. EXPLAINED GREGORIO & SHE AGREED BUT SAID ABSOLUTELY NO PHOTOS.
--- NOTE | 2017-02-16 19:45 | NUR ---
PT RESTING QUIETLY IN BED AT THIS TIME. NO C/O VOICED. PT DENIES ANY FURTHER DYSURIA/FREQUENCY. CALL LIGHT IN REACH.
[2017-02-16 20:00] VITALS: BP 116/42
--- NOTE | 2017-02-16 21:32 | NUR ---
PT ASSISTED TO BR X1 W/2WW W/OUT DIFF. ASSISTED BACK TO BED AND BED ALARM ON. CALL LIGHT IN REACH.
--- NOTE | 2017-02-16 22:00 | NUR ---
IV ATB INFUSING. PT C/O ITCHING TO IV SITE. NO REDNESS/WARMTH/RASH/EDEMA NOTED. WILL CONT. TO MONITOR.
--- NOTE | 2017-02-16 22:39 | NUR ---
24 HR chart check completed.
--- NOTE | 2017-02-16 23:00 | NUR ---
IV ATB COMPLETED AT THIS TIME. NO S/S OF ALLERGIC REACTION NOTED. PT DENIES ANY FURTHER C/O ITCHING.
[2017-02-17] VITALS: BP 127/56
--- NOTE | 2017-02-17 04:56 | NUR ---
PT RESTING QUIETLY IN BED. NO S/S OF DISTRESS NOTED.
[2017-02-17 08:00] VITALS: BP 124/46
--- NOTE | 2017-02-17 09:16 | NUR ---
Awake and alert. states is going home today. To BR and then up to chair.
--- NOTE | 2017-02-17 11:16 | NUR ---
PHYSICAL THERAPY Winter seen this AM 1:1 for her therapy treatment. Transfer supine/sit CG X 1, sitting balance supervision x 1, X 4 min sitting. Sit/stand and up on wheeled walker MIN A X 1. Gait total 47' X 1, MOD PLUG ASSEMBLER X 1, with cueing for safety with wheeled walker, up in her bedside chair slight fatigue and no scissoring gait this session. Pt with call light, phone. End with act EX to bilateral LE of TAWNYA cisneros's ankle pumps X 25 reps each with cueing for each Ex. HANY MADRID PLASTER FOREMAN.
[2017-02-17 12:00] VITALS: BP 126/52
[2017-02-17 16:00] VITALS: BP 140/54
[2017-02-17] MEDS ORDERED: XARE20MG PO (18:49)
[2017-02-17] MEDS ORDERED: METOPROLOL SUCC25 M2 PO (18:49)
[2017-02-17] MEDS ORDERED: CIPRO500 MG PO (19:25)
--- NOTE | 2017-02-17 19:31 | NUR ---
Dr. Betts in . Order for discharge recieved. Instruction given. repeat back instructions . Voiced understanding. IV and monitor dc'd . called for ride to meet in main lobby at 0750. Awaiting transportation.
--- NOTE | 2017-02-18 06:27 | NUR ---
PHYSICAL THERAPY CO-SIGN I approve of the Phyical Therapy notes written above. DICK ROGERS PT
== END 2017-02-17 20:06 | disposition home health service (06) | DRG 606 ==
LOC: ED 12:13 → EDHOLD 17:29 → 4E 17:29 → ICCU 17:29 → 4E 02-14 13:09
PROVIDERS: Nurse Practitioner Family; ADMIT Internal Medicine
DX: L27.0 Generalized skin eruption due to drugs and medicaments taken internally (principal); G93.41 Metabolic encephalopathy; F05 Delirium due to known physiological condition; G20 Parkinson's disease; N30.01 Acute cystitis with hematuria; F23 Brief psychotic disorder; I48.0 Paroxysmal atrial fibrillation; B96.4 Proteus (mirabilis) (morganii) as the cause of diseases classified elsewhere; R07.2 Precordial pain; K21.0 Gastro-esophageal reflux disease with esophagitis; R54 Age-related physical debility; T37.0X5A Adverse effect of sulfonamides, initial encounter; Z96.653 Presence of artificial knee joint, bilateral; I11.9 Hypertensive heart disease without heart failure; B96.20 Unspecified Escherichia coli [E. coli] as the cause of diseases classified elsewhere; Z96.642 Presence of left artificial hip joint; R62.7 Adult failure to thrive; I25.10 Atherosclerotic heart disease of native coronary artery without angina pectoris; Z90.49 Acquired absence of other specified parts of digestive tract; Z88.0 Allergy status to penicillin; Z90.710 Acquired absence of both cervix and uterus; Z82.3 Family history of stroke; Z82.49 Family history of ischemic heart disease and other diseases of the circulatory system; Z83.3 Family history of diabetes mellitus; Z88.2 Allergy status to sulfonamides; Z88.1 Allergy status to other antibiotic agents; Z79.899 Other long term (current) drug therapy; Z79.01 Long term (current) use of anticoagulants; Y92.89 Other specified places as the place of occurrence of the external cause

== ENCOUNTER 2017-02-27 14:23 | Emergency (ER) | payer OTHER ==
[~2017-02-27] VITALS: Wt 82.1 kg
--- NOTE | ~2017-02-27 | EKG ---
[place], [place] ELECTROCARDIOGRAM REPORT NAME: ANETTE QIUNTANA UNIT #: [id number] ROOM: DOCTOR: HILARIO GIORDANO,GENNA BIRTHDATE: [birth year] DOS: 02/27/2017 TIME: 1456 hours. IMPRESSION: 1. Sinus rhythm. 2. Lateral ST-T changes. 3. Baseline artifacts. 4. Cannot rule out some borderline ST elevation. GENNA RICH MD CM:EKGRPT:ELECTROCARDIOGRAM REPORT 1519 1731 GENNA RICH MD
--- NOTE | ~2017-02-27 | EKG ---
[place], [place] ELECTROCARDIOGRAM REPORT NAME: ANETTE QUINTANA UNIT #: [id number] ROOM: DOCTOR: HILARIO GIORDANO,GENNA BIRTHDATE: [birth year] DOS: 02/27/2017 TIME: 1652 hours. IMPRESSION: 1. Sinus rhythm. 2. Low voltage complexes in the precordial leads. GENNA RICH MD CM:EKGRPT:ELECTROCARDIOGRAM REPORT 1517 1729 GENNA RICH MD
[~2017-02-27 14:23] MED LIST changes: +CIPRO500 MG PO; +EPIPEN 2-P0.3 MG/0.3 IJ; +METOPROLOL SUCC25 M2 PO; +OCCUVITE PO; +PREDNISONE10 MG PO; +PYRIDIUM200 M1 PO; +VITAMIN D32000 UNI1 PO; +XARE20MG PO
[2017-02-27 14:32] VITALS: BP 144/53
[2017-02-27 14:59] LABS: BASO % 0.2 % (0.0-1.0); EOS # 0.2 10*3/uL (0.0-0.4); EOS % 2.1 % (1.0-4.0); HEMATOCRIT 41.5 % (37.0-47.0); HEMOGLOBIN 13.2 g/dl (12.0-16.0); LYMPH # 1.4 10*3/uL (1.3-4.4); LYMPH % 17.4 % (27.0-41.0); MEAN CELL VOLUME 97.6 fl (81.0-99.0); MEAN CORPUSCULAR HGB 31.1 pg (27.0-31.0); MEAN CORPUSCULAR HGB CONC 31.8 g/dl (33.0-37.0); MEAN PLATELET VOLUME 9.4 fl (9.6-12.3); MONO # 0.6 10*3/uL (0.1-1.0); MONO % 6.7 % (3.0-9.0); NEUT % 73.2 % (47.0-73.0); PLATELET COUNT AUTOMATED 166 10*3/uL (130-400); RED BLOOD COUNT 4.25 10*6/uL (4.10-5.10); RED CELL DISTRI WIDTH 13.1 % (0-14.5); WHITE BLOOD COUNT 8.2 10*3/uL (4.8-10.8)
[2017-02-27 15:16] LABS: ALBUMIN 3.1 gm/dl (3.1-4.5); ALKALINE PHOSPHATASE 75 U/L (45-117); BUN 19 mg/dl (7-24); CHLORIDE 107 mmol/L (98-107); CREATININE 1.02 mg/dL (0.55-1.02); POTASSIUM 4.9 mmol/L (3.5-5.1); SGOT/AST 15 IU/L (3-35); SGPT/ALT 9 U/L (12-78); SODIUM 140 mmol/L (136-145); TOTAL PROTEIN 6.7 gm/dL (6.4-8.2)
[2017-02-27 15:17] LABS: TROPONIN I < 0.015 ng/ml (<0.045)
== END 2017-02-27 17:46 | disposition home or self-care (01) ==
LOC: ED 14:23
PROVIDERS: Physician Assistant
DX: S39.012A Strain of muscle, fascia and tendon of lower back, initial encounter (principal); S60.221A Contusion of right hand, initial encounter; M25.561 Pain in right knee; M79.671 Pain in right foot; R07.89 Other chest pain; Z90.710 Acquired absence of both cervix and uterus; Z90.49 Acquired absence of other specified parts of digestive tract; Z96.642 Presence of left artificial hip joint; Z96.653 Presence of artificial knee joint, bilateral; Z79.899 Other long term (current) drug therapy; Z88.0 Allergy status to penicillin; Z88.2 Allergy status to sulfonamides; W10.9XXA Fall (on) (from) unspecified stairs and steps, initial encounter; Y93.89 Activity, other specified; Y92.89 Other specified places as the place of occurrence of the external cause; Y99.9 Unspecified external cause status

== ENCOUNTER 2017-03-11 01:09 | Emergency (ER) | payer OTHER ==
[~2017-03-11] VITALS: Ht 172.7 cm; Wt 95.3 kg
[2017-03-11 01:41] LABS: BASO % 0.5 % (0.0-1.0); EOS # 0.2 10*3/uL (0.0-0.4); EOS % 2.5 % (1.0-4.0); HEMATOCRIT 38.4 % (37.0-47.0); HEMOGLOBIN 12.2 g/dl (12.0-16.0); LYMPH % 17.2 % (27.0-41.0); MEAN CORPUSCULAR HGB 31.1 pg (27.0-31.0); MEAN CORPUSCULAR HGB CONC 31.8 g/dl (33.0-37.0); MEAN PLATELET VOLUME 8.9 fl (9.6-12.3); MONO # 0.4 10*3/uL (0.1-1.0); MONO % 7.3 % (3.0-9.0); NEUT # 4.3 10*3/uL (2.3-7.9); NEUT % 72.3 % (47.0-73.0); PLATELET COUNT AUTOMATED 216 10*3/uL (130-400); RED BLOOD COUNT 3.92 10*6/uL (4.10-5.10); RED CELL DISTRI WIDTH 13.2 % (0-14.5); WHITE BLOOD COUNT 5.9 10*3/uL (4.8-10.8)
[2017-03-11 01:59] LABS: ALBUMIN 3.2 gm/dl (3.1-4.5); CREATININE 1.07 mg/dL (0.55-1.02); POTASSIUM 3.9 mmol/L (3.5-5.1); TOTAL PROTEIN 6.7 gm/dL (6.4-8.2)
[2017-03-11 02:49] LABS: BILIRUBIN NEGATIVE (NEGATIVE); BLOOD NEGATIVE (NEGATIVE); CLARITY CLEAR (CLEAR); COLOR YELLOW (YELLOW); GLUCOSE NEGATIVE (NEGATIVE); KETONE NEGATIVE (NEGATIVE); LEUKO ESTERASE NEGATIVE (NEGATIVE); NITRITE NEGATIVE (NEGATIVE); SPECIFIC GRAVITY 1.015 (1.005-1.030); UROBILINOGEN 0.2 E.U./dl (0.2-1.0)
[2017-03-11 03:05] LABS: WBC 0-2 wbc/hpf (0-5)
[2017-03-11 04:45] VITALS: BP 140/58
== END 2017-03-11 09:44 | disposition home or self-care (01) ==
LOC: ED 01:09
PROVIDERS: Emergency Medicine
DX: K57.90 Diverticulosis of intestine, part unspecified, without perforation or abscess without bleeding (principal); K21.9 Gastro-esophageal reflux disease without esophagitis; I48.91 Unspecified atrial fibrillation; G20 Parkinson's disease; Z88.0 Allergy status to penicillin; Z88.2 Allergy status to sulfonamides; Z79.899 Other long term (current) drug therapy; Z90.49 Acquired absence of other specified parts of digestive tract; Z90.710 Acquired absence of both cervix and uterus

== ENCOUNTER 2017-03-15 22:55 | Emergency (ER) | payer OTHER ==
[~2017-03-15] VITALS: Wt 84.8 kg
[2017-03-15 23:37] LABS: BASO % 0.8 % (0.0-1.0); EOS # 0.3 10*3/uL (0.0-0.4); EOS % 5.2 % (1.0-4.0); HEMATOCRIT 37.7 % (37.0-47.0); HEMOGLOBIN 12.1 g/dl (12.0-16.0); LYMPH # 1.5 10*3/uL (1.3-4.4); LYMPH % 31.7 % (27.0-41.0); MEAN CELL VOLUME 98.2 fl (81.0-99.0); MEAN CORPUSCULAR HGB 31.5 pg (27.0-31.0); MEAN CORPUSCULAR HGB CONC 32.1 g/dl (33.0-37.0); MEAN PLATELET VOLUME 9.5 fl (9.6-12.3); MONO # 0.5 10*3/uL (0.1-1.0); MONO % 11.1 % (3.0-9.0); NEUT # 2.4 10*3/uL (2.3-7.9); NEUT % 50.8 % (47.0-73.0); PLATELET COUNT AUTOMATED 228 10*3/uL (130-400); RED BLOOD COUNT 3.84 10*6/uL (4.10-5.10); RED CELL DISTRI WIDTH 13.3 % (0-14.5); WHITE BLOOD COUNT 4.8 10*3/uL (4.8-10.8)
[2017-03-15 23:50] LABS: ACT PARTIAL THROMBO TIME 28.3 SECONDS (20.8-31.5)
[2017-03-15 23:54] LABS: BUN 17 mg/dl (7-24); CHLORIDE 110 mmol/L (98-107); CREATININE 0.96 mg/dL (0.55-1.02); POTASSIUM 4.3 mmol/L (3.5-5.1); SODIUM 144 mmol/L (136-145)
[2017-03-15 23:55] LABS: TROPONIN I < 0.015 ng/ml (<0.045)
[2017-03-16 04:00] VITALS: BP 136/54
[2017-03-16] MEDS ORDERED: CLINDAMYCIN150 MG PO (06:34)
== END 2017-03-16 06:55 | disposition home or self-care (01) ==
LOC: ED 22:55
PROVIDERS: Emergency Medicine Emergency Medical Services
DX: L03.115 Cellulitis of right lower limb (principal); I48.91 Unspecified atrial fibrillation; K21.9 Gastro-esophageal reflux disease without esophagitis; Z90.49 Acquired absence of other specified parts of digestive tract; Z96.653 Presence of artificial knee joint, bilateral; Z96.641 Presence of right artificial hip joint; Z90.710 Acquired absence of both cervix and uterus; Z79.899 Other long term (current) drug therapy; Z88.0 Allergy status to penicillin; Z88.2 Allergy status to sulfonamides

== ENCOUNTER 2017-07-24 17:11 | Emergency (ER) | payer OTHER ==
[~2017-07-24] VITALS: Ht 167.6 cm; Wt 99.8 kg
[~2017-07-24 17:11] MED LIST changes: +CLINDAMYCIN150 MG PO
[2017-07-24 18:00] VITALS: BP 164/60
== END 2017-07-24 19:33 | disposition home or self-care (01) ==
LOC: ED 17:11
DX: S60.411A Abrasion of left index finger, initial encounter (principal); R07.81 Pleurodynia; M25.552 Pain in left hip; G20 Parkinson's disease; Z96.653 Presence of artificial knee joint, bilateral; Z90.49 Acquired absence of other specified parts of digestive tract; Z90.710 Acquired absence of both cervix and uterus; Z96.642 Presence of left artificial hip joint; Z79.899 Other long term (current) drug therapy; Z88.0 Allergy status to penicillin; Z88.2 Allergy status to sulfonamides; W19.XXXA Unspecified fall, initial encounter; Y93.89 Activity, other specified; Y92.098 Other place in other non-institutional residence as the place of occurrence of the external cause; Y99.9 Unspecified external cause status

== ENCOUNTER → 2018-01-05 | Outpatient (CLI) | payer OTHER ==
[~2018-01-05] MED LIST changes: +CEFUROXIME AXE250 MG PO; +TYLENOL EXTRA500 MG PO
== END | disposition home or self-care (01) ==
LOC: WOUNDCARE 02:26
DX: I87.311 Chronic venous hypertension (idiopathic) with ulcer of right lower extremity (principal); L97.811 Non-pressure chronic ulcer of other part of right lower leg limited to breakdown of skin; G20 Parkinson's disease; I25.10 Atherosclerotic heart disease of native coronary artery without angina pectoris; K21.9 Gastro-esophageal reflux disease without esophagitis; Z96.642 Presence of left artificial hip joint; Z96.653 Presence of artificial knee joint, bilateral

== ENCOUNTER 2018-01-08 18:15 | Inpatient (IN) | payer OTHER ==
[~2018-01-08] VITALS: Ht 165.1 cm; Wt 84.4 kg
--- NOTE | ~2018-01-08 | PR ---
[place], [place] PROGRESS NOTE NAME: ANETTE QUINTANA UNIT #: [id number] ROOM: 410 DOCTOR: AIMEE NAVARRETE MD BIRTHDATE: [birth year] DOS: SUBJECTIVE: The patient still is at the hospital. She has not been approved for long term placement yet. PHYSICAL EXAMINATION: VITAL SIGNS: Pressure is 117/38, pulse of 65, respirations 17, temperature 96.5. LUNGS: Clear. HEART: Regular. ABDOMEN: Obese, soft. EXTREMITIES: Without any edema. ASSESSMENT AND PLAN: 1. Fall with wrist fracture. 2. Adult failure to thrive with frailty from underlying Parkinson's. The patient will need to be placed. She lives at home alone and does not have any family members. 3. Poorly healing wound of the right lower leg. Instruction given to the nursing staff. Avoid OpSite, cover with Kerlix. AIMEE NAVARRETE MD CM:PNTRANS 9 30 AIMEE NAVARRETE MD 01/13/18 1331 interface
--- NOTE | ~2018-01-08 | PR ---
[place], [place] PROGRESS NOTE NAME: ANETTE QUINTANA UNIT #: [id number] ROOM: 410 DOCTOR: AIMEE NAVARRETE MD BIRTHDATE: [birth year] DOS: 01/12/2018 SUBJECTIVE: The patient feels good and is not having any complaints at all. OBJECTIVE: VITAL SIGNS: Blood pressure is 128/70, pulse of 67, respirations 16, and temperature 98.6. LUNGS: Clear. HEART: Regular. ABDOMEN: Obese. EXTREMITIES: Without any edema. The patient did complain of some, what nurses thought that it was left-sided chest pain. This appeared to be most likely musculoskeletal. Troponin was negative. ASSESSMENT AND PLAN: 1. Adult failure to thrive with falls. 2. Parkinson's disease. 3. Fracture of the left wrist. 4. Placement to [facility] today. ADDENDUM The patient's right leg has a large wound from a recent blister. This is still red with some surrounding cellulitis. Discussed with nursing staff. We will continue Maxorb honey dressings and a low dose antibiotic for 5 days. AIMEE NAVARRETE MD CM:PNTRANS 0820 [id number] AIMEE NAVARRETE MD 01/13/18 0521 interface
--- NOTE | ~2018-01-08 | PR ---
[place], [place] PROGRESS NOTE NAME: ANETTE QUINTANA UNIT #: [id number] ROOM: 410 DOCTOR: AIMEE NAVARRETE MD BIRTHDATE: [birth year] DOS: SUBJECTIVE: The patient is doing well without any complaints. OBJECTIVE: VITAL SIGNS: Blood pressure is 130/61, pulse of 98, respirations 20, temperature 98.8. LUNGS: Clear. HEART: Regular. ABDOMEN: Obese, soft. EXTREMITIES: Without any edema. Left wrist in a splint. ASSESSMENT AND PLAN: 1. Fall with fracture of the left wrist ____ radius and ulna. The patient was seen by Dr. Knott and a new splint will be placed tomorrow. 2. Adult failure to thrive, for placement. Social service and PT, OT has been consulted. 3. Confusion from medications, toxic encephalopathy caused from medications. We will discontinue all pain medicines Tylenol for pain control. One dose of Haldol was given yesterday. 4. Benign hypertension, controlled. AIMEE NAVARRETE MD CM:PNTRANS 0548 0735 AIMEE NAVARRETE MD 01/10/18 0746 interface
--- NOTE | ~2018-01-08 | DS ---
[place], [place] DISCHARGE SUMMARY NAME: ANETET QUINTANA UNIT #: [id number] ROOM: 410 DOCTOR: AIMEE NAVARRETE MD BIRTHDATE: [birth year] DOS: 01/11/2018 DIAGNOSES: 1. Adult failure to thrive. 2. Frailty with fall with 3 fracture of the left wrist. 3. Transverse comminuted fracture of the distal radial metaphysis with angulation and a chip fracture of the ulnar styloid. 4. Bilateral knee replacements. 5. Coronary artery disease of [place] coronaries. 6. Gastroesophageal reflux disease. 7. Left hip replacement. 8. Parkinson's disease and encephalopathy, possibly related to medications. DISCHARGE MEDICATIONS: Medications on discharge are Ceftin 250 twice a day for 5 days, omeprazole 40 daily, carbidopa 25/250 q. 6 hours, Vitamin D 4000 units daily, Tylenol 500 q. 8 hours. HOSPITAL COURSE: The patient is 87 years old, known to me from previous admissions. The patient of Dr. Betts's; was brought in after a fall at home. Please refer to H and P for details. The patient had a small splint placed, which was changed by Dr. Knott, and then also given a platform extension for the left upper extremity for a walker. PT/OT was consulted. Social service has been consulted. The patient lives home alone and does not have any family members here. The two daughters live out of town, and she has agreed to go to [facility]. The patient was given Dilaudid for pain control as well as Coy. This made her confused requiring one dose of Haldol, both meds have been discontinued, and she will be maintained on Tylenol for pain control. The patient's multiple x-rays done including CT of the cervical spine, hip x-ray, CT of lumbar spine all showed osteoarthritis and disk disease. The patient to start PT, OT at the longterm and will be followed by Dr. Betts there. [place], [place] DISCHARGE SUMMARY NAME: ANETTE QUINTANA UNIT #: [id number] ROOM: 410 DOCTOR: AIMEE NAVARRETE MD BIRTHDATE: [birth year] AIMEE NAVARRETE MD CM:PIO 3 AIMEE NAVARRETE MD 01/11/18 0844 interface
--- NOTE | ~2018-01-08 | WRIGHTHP ---
[place], [place] PATIENT HISTORY AND PHYSICAL EXAM [id number] UN[facility] #: [id number] ROOM: 410 DOCTOR: AIMEE NAVARRETE MD BIRTHDATE: [birth year] DOS: 01/08/2018 HISTORY OF PRESENT ILLNESS: The patient is 87-year-old. She was cooking at home, fell backwards, while falling she hit her hand on the sink and hit her tailbone and her head on the floor. She came to the Emergency Room with complaints of pain after EMS was called and she was noted to have a deformity of the left wrist. X-rays of the left wrist were ordered, which showed transverse comminuted fracture of the distal radial metaphases with angulation and a chip fracture of the ulnar styloid. The patient was therefore admitted to the hospital. She lives at home alone. She has 2 daughters who live away. She does not have any complaints of chest pains or palpitations, does not have any fever or chills. She has had cellulitis of the right leg with a poorly healing wound and was seen by wound care for the last few months and she had been released recently since the wound had completely healed, but the patient noticed a blister a few days ago that has opened up and left with a large wound on the right leg. She denies having any fever or chills. PAST MEDICAL HISTORY: Significant for: 1. Parkinson's. 2. Coronary artery disease of [place] coronaries. 3. Bilateral knee replacements. 4. Left hip replacement. 5. Adult failure to thrive. 6. Gastroesophageal reflux disease. MEDICATIONS: She is on Tylenol Extra Strength q. 8 hours p.r.n., Sinemet 25/250 one tablet q. 6 hours, omeprazole 40 daily, vitamin D 4000 units daily. SOCIAL HISTORY: Nonsmoker, does not use any alcohol. Lives at home alone. PHYSICAL EXAMINATION: GENERAL: She is awake and alert and oriented, answers questions appropriately, minimal discomfort in the left wrist area, which is bandaged up. VITAL SIGNS: Graphic trend shows blood pressure of 109/36, pulse of 76, respirations 20, temperature 97.8. LUNGS: Clear. HEART: Regular. ABDOMEN: Obese, soft. EXTREMITIES: Without any edema. Right leg with some minimal redness noticed around this large blister that has opened up. The base of the blister is clean with some good granulation tissue. No swelling noticed in ____ of her legs. IMAGING: Wrist again, x-rays were done in the Emergency Room. CT of the head shows small vessel disease of the brain and degenerative changes of the cervical spine. Cervical spine x-ray as above. Wrist as described earlier with the transverse, slightly comminuted fracture of the distal left radial metaphysis with mild angulation and a chip fracture of the ulnar styloid. Hip x-ray shows history of hip prosthesis, but no abnormality. CT of the lumbar spine shows degenerative joint changes with evidence of spinal stenosis and disk protrusion. [place], [place] PATIENT HISTORY AND PHYSICAL EXAM NAME: ANETTE QUINTANA UNIT #: [id number] ROOM: 410 DOCTOR: AIMEE NAVARRETE MD BIRTHDATE: [birth year] ASSESSMENT AND PLAN: 1. Adult failure to thrive. The patient may require placement. Discussed with the patient who is agreeable. Social Service and PT, OT will be consulted. 2. Frailty with falls and with a recent wrist fracture. Dr. Knott has been consulted. We are awaiting opinion. 3. Parkinson's, on medications, which will be restarted. 4. A blister on the right leg, which has opened up and left with a large poorly healing wound, stage 1. Honey dressings and ____ will be ordered. AIMEE NAVARRETE MD CM:HISPHYS:PATIENT HISTORY AND PHYSICAL EXAMINATION 2 AIMEE NAVARRETE MD 01/09/1831 interface
--- NOTE | ~2018-01-08 | PR ---
[place], [place] PROGRESS NOTE NAME: ANETTE QUINTANA UNIT #: [id number] ROOM: 410 DOCTOR: AIMEE NAVARRETE MD BIRTHDATE: [birth year] DOS: SUBJECTIVE: The patient is doing well, does not have any new complaints. OBJECTIVE: VITAL SIGNS: Blood pressure is 129/41, pulse of 70, respirations 18, temperature 98.8. LUNGS: Clear. HEART: Regular. ABDOMEN: Soft. EXTREMITIES: without any edema. Splint on the left wrist. ASSESSMENT AND PLAN: 1. Fracture of the left wrist, splinted by Dr. Knott. 2. Adult failure to thrive with frequent falls, awaiting placement to [facility]. Plan to discharge. AIMEE NAVARRETE MD CM:PNTRANS 0800 [id number] AIMEE NAVARRETE MD 01/11/18 1118 interface
--- NOTE | ~2018-01-08 | EKG ---
[place], [place] ELECTROCARDIOGRAM REPORT NAME: ANETTE QUINTANA UNIT #: [id number] ROOM: 410 DOCTOR: JEANINE DRAFT REPORT BIRTHDATE: [birth year] [facility] Test Date: 2018-01-11 Test Time: 16:55:49 Pat Name: ANETTE QUINTANA Department: Room: 410 1 Gender: F Olive Grower: ADELA : 1930 Requested By: AIMEE NAVARRETE Order Number: [id number] Reading MD: Jim Sanchez MD Measurements Intervals [place] Rate: 72 P: 46 IN: 145 QRS: -8 QRSD: 91 T: 24 QT: 413 QTc: 453 Interpretive Statements Sinus rhythm Atrial premature complexes Electronically Signed On 01-12-2018 4:02:22 PDT by Jim Sanchez MD CM:EKGRPT:ELECTROCARDIOGRAM REPORT [id number] 0402 AIMEE NAVARRETE MD EPIPHANY DRAFT REPORT AIMEE NAVARRETE MD
[~2018-01-08 18:15] MED LIST changes: -CEFUROXIME AXE250 MG PO; -TYLENOL EXTRA500 MG PO
[2018-01-08 20:41] VITALS: BP 166/71
[2018-01-08 21:57] VITALS: BP 152/57
[2018-01-08] MEDS ORDERED: TYLENOL EXTRA500 MG PO (23:39)
[2018-01-09] VITALS: BP 109/36
[2018-01-09 08:00] VITALS: BP 112/44
[2018-01-09 12:00] VITALS: BP 134/43
[2018-01-09 16:00] VITALS: BP 142/48
[2018-01-09 20:00] VITALS: BP 134/48
[2018-01-10] VITALS: BP 130/61
[2018-01-10 06:21] LABS: BASO % 0.1 % (0.0-1.0); EOS % 0.4 % (1.0-4.0); HEMATOCRIT 40.8 % (37.0-47.0); HEMOGLOBIN 12.9 g/dl (12.0-16.0); LYMPH # 0.8 10*3/uL (1.3-4.4); LYMPH % 9.9 % (27.0-41.0); MEAN CELL VOLUME 96.2 fl (81.0-99.0); MEAN CORPUSCULAR HGB 30.4 pg (27.0-31.0); MEAN CORPUSCULAR HGB CONC 31.6 g/dl (33.0-37.0); MEAN PLATELET VOLUME 9.7 fl (9.6-12.3); MONO # 0.8 10*3/uL (0.1-1.0); MONO % 9.3 % (3.0-9.0); NEUT # 6.6 10*3/uL (2.3-7.9); NEUT % 80.1 % (47.0-73.0); PLATELET COUNT AUTOMATED 220 10*3/uL (130-400); RED BLOOD COUNT 4.24 10*6/uL (4.10-5.10); RED CELL DISTRI WIDTH 14.4 % (0-14.5); WHITE BLOOD COUNT 8.2 10*3/uL (4.8-10.8)
[2018-01-10 06:45] LABS: BUN 14 mg/dl (7-24); CHLORIDE 105 mmol/L (98-107); CREATININE 0.85 mg/dL (0.55-1.02); POTASSIUM 4.3 mmol/L (3.5-5.1); SODIUM 140 mmol/L (136-145)
[2018-01-10 08:00] VITALS: BP 113/50
[2018-01-10 12:00] VITALS: BP 95/54
[2018-01-10 16:00] VITALS: BP 131/50
[2018-01-10 20:00] VITALS: BP 100/30
[2018-01-11] VITALS: BP 129/41
[2018-01-11] MEDS ORDERED: CEFUROXIME AXE250 MG PO (07:58)
[2018-01-11 08:00] VITALS: BP 98/50
[2018-01-11 12:00] VITALS: BP 126/50
[2018-01-11 16:00] VITALS: BP 121/45
[2018-01-11 20:00] VITALS: BP 124/43
[2018-01-12] VITALS: BP 115/40
[2018-01-12 08:00] VITALS: BP 128/70
[2018-01-12 11:59] VITALS: BP 140/70
[2018-01-12 16:00] VITALS: BP 111/35
[2018-01-12 20:00] VITALS: BP 132/78
[2018-01-13] VITALS: BP 116/39
[2018-01-13 08:00] VITALS: BP 117/38
[2018-01-13 12:00] VITALS: BP 150/53
== END 2018-01-13 13:50 | disposition other institution (70) | DRG 562 ==
LOC: ED 18:15 → 4E 21:17 → EDHOLD 21:17 → 4E 21:39
PROVIDERS: Internal Medicine
PROC: 2W39X1Z Immobilization of Left Upper Extremity using Splint (ICD-10-PCS; principal; 2018-01-08)
PROC: 2W39X1Z Immobilization of Left Upper Extremity using Splint (ICD-10-PCS; 2018-01-11)
DX: S52.592A Other fractures of lower end of left radius, initial encounter for closed fracture (principal); G92 Toxic encephalopathy; L97.919 Non-pressure chronic ulcer of unspecified part of right lower leg with unspecified severity; L03.115 Cellulitis of right lower limb; S52.612A Displaced fracture of left ulna styloid process, initial encounter for closed fracture; R62.7 Adult failure to thrive; Z96.653 Presence of artificial knee joint, bilateral; I25.10 Atherosclerotic heart disease of native coronary artery without angina pectoris; K21.9 Gastro-esophageal reflux disease without esophagitis; R29.6 Repeated falls; I10 Essential (primary) hypertension; Z96.642 Presence of left artificial hip joint; G20 Parkinson's disease; I48.91 Unspecified atrial fibrillation; K57.90 Diverticulosis of intestine, part unspecified, without perforation or abscess without bleeding; T50.995A Adverse effect of other drugs, medicaments and biological substances, initial encounter; M50.20 Other cervical disc displacement, unspecified cervical region; M47.892 Other spondylosis, cervical region; W18.39XA Other fall on same level, initial encounter; Y99.8 Other external cause status; Z88.2 Allergy status to sulfonamides; Z88.0 Allergy status to penicillin; Z87.440 Personal history of urinary (tract) infections; Z90.49 Acquired absence of other specified parts of digestive tract; Z90.710 Acquired absence of both cervix and uterus; Z82.49 Family history of ischemic heart disease and other diseases of the circulatory system; Z83.3 Family history of diabetes mellitus; Z82.3 Family history of stroke; Y92.090 Kitchen in other non-institutional residence as the place of occurrence of the external cause; Y93.G3 Activity, cooking and baking

== ENCOUNTER → 2018-01-20 | Outpatient (CLI) | payer OTHER ==
[~2018-01-20] MED LIST changes: +CEFUROXIME AXE250 MG PO; +TYLENOL EXTRA500 MG PO
== END | disposition home or self-care (01) ==
LOC: ORTHO 01:01
DX: S62.102D Fracture of unspecified carpal bone, left wrist, subsequent encounter for fracture with routine healing (principal); S52.615D Nondisplaced fracture of left ulna styloid process, subsequent encounter for closed fracture with routine healing; R60.0 Localized edema; X58.XXXD Exposure to other specified factors, subsequent encounter

== ENCOUNTER → 2018-02-15 | Outpatient (CLI) | payer OTHER | END | disposition home or self-care (01) | LOC: ORTHO 01:05 | DX: S62.102D Fracture of unspecified carpal bone, left wrist, subsequent encounter for fracture with routine healing (principal); X58.XXXD Exposure to other specified factors, subsequent encounter ==

== ENCOUNTER → 2018-03-12 | Outpatient (CLI) | payer OTHER ==
--- NOTE | ~2018-03-12 | EKG ---
[place], [place] ELECTROCARDIOGRAM REPORT NAME: ANETTE QUINTANA UNIT #: [id number] ROOM: DOCTOR: JEANINE DRAFT REPORT BIRTHDATE: [birth year] [facility] Test Date: 2018-03-12 Test Time: 10:59:50 Pat Name: ANETTE QUINTANA Department: Room: Gender: F Plastic Molding Operator: : 1930 Requested By: SVETA ABAD Order Number: [id number] Reading MD: Gurdeep Callejas MD Measurements Intervals [place] Rate: 68 P: 66 ME: 170 QRS: 12 QRSD: 95 T: 32 QT: 423 QTc: 450 Interpretive Statements Sinus rhythm Atrial premature complex Low voltage, precordial leads Baseline wander in lead(s) V4 Compared to ECG 01/11/2018 16:55:49 Low QRS voltage now present Electronically Signed On 03-15-2018 12:30:11 PST by Gurdeep Callejas MD CM:EKGRPT:ELECTROCARDIOGRAM REPORT [id number] SVETA MILLARD DRAFT REPORT SVETA ABAD DO
[2018-03-12 11:16] LABS: BASO % 0.6 % (0.0-1.0); EOS # 0.3 10*3/uL (0.0-0.4); EOS % 4.7 % (1.0-4.0); HEMATOCRIT 40.8 % (37.0-47.0); HEMOGLOBIN 12.7 g/dl (12.0-16.0); LYMPH # 1.4 10*3/uL (1.3-4.4); LYMPH % 25.7 % (27.0-41.0); MEAN CELL VOLUME 100.7 fl (81.0-99.0); MEAN CORPUSCULAR HGB 31.4 pg (27.0-31.0); MEAN CORPUSCULAR HGB CONC 31.1 g/dl (33.0-37.0); MEAN PLATELET VOLUME 10.3 fl (9.6-12.3); MONO # 0.5 10*3/uL (0.1-1.0); MONO % 8.4 % (3.0-9.0); NEUT # 3.2 10*3/uL (2.3-7.9); NEUT % 60.4 % (47.0-73.0); PLATELET COUNT AUTOMATED 183 10*3/uL (130-400); RED BLOOD COUNT 4.05 10*6/uL (4.10-5.10); RED CELL DISTRI WIDTH 13.2 % (0-14.5); WHITE BLOOD COUNT 5.3 10*3/uL (4.8-10.8)
[2018-03-12 11:43] LABS: ALBUMIN 3.3 gm/dl (3.1-4.5); ALKALINE PHOSPHATASE 86 U/L (45-117); BILIRUBIN, DIRECT 0.1 mg/dL (0.0-0.2); BUN 21 mg/dl (7-24); CHLORIDE 108 mmol/L (98-107); CREATININE 0.93 mg/dL (0.55-1.02); PHOSPHOROUS 3.2 mg/dL (2.5-4.9); POTASSIUM 4.5 mmol/L (3.5-5.1); SGOT/AST 13 IU/L (3-35); SODIUM 142 mmol/L (136-145); THYROXINE (T4) TOTAL 9.7 ug/dl (4.8-13.9)
[2018-03-12 12:03] LABS: SGPT/ALT < 6 U/L (12-78)
== END | disposition home or self-care (01) ==
LOC: ORTHO 03:13 → LAB 03:13 → ORTHO 17:21
PROVIDERS: Internal Medicine
DX: S62.102D Fracture of unspecified carpal bone, left wrist, subsequent encounter for fracture with routine healing (principal); I48.0 Paroxysmal atrial fibrillation; R53.83 Other fatigue; X58.XXXD Exposure to other specified factors, subsequent encounter

== ENCOUNTER → 2018-04-09 | Outpatient (CLI) | payer OTHER ==
[~2018-04-09] MED LIST changes: +B12,B-12,B 12500 MC1 PO; +MIDODRINE HCL5 M1 PO
== END | disposition home or self-care (01) ==
LOC: ORTHO 04:20
DX: S52.92XD Unspecified fracture of left forearm, subsequent encounter for closed fracture with routine healing (principal); X58.XXXD Exposure to other specified factors, subsequent encounter

== ENCOUNTER 2018-04-14 09:14 | Inpatient (IN) | payer OTHER ==
[2018-04-14] VITALS (8 sets, daily range): BP systolic 99–125; BP diastolic 36–76
[~2018-04-14] VITALS: Ht 160 cm; Wt 79.4 kg
--- NOTE | ~2018-04-14 | EKG ---
[place], [place] ELECTROCARDIOGRAM REPORT NAME: ANETTE QUINTANA UNIT #: [id number] ROOM: 510 DOCTOR: JEANINE DRAFT REPORT BIRTHDATE: [birth year] [facility] Test Date: 2018-04-14 Test Time: 16:24:22 Pat Name: ANETTE QUINTANA Department: Room: 510 1 Gender: F Supervisor Bonding: Tootie Gloria : 1930 Requested By: TAMMY PELAYO Order Number: [id number] Reading MD: Bryanna Braswell MD Measurements Intervals [place] Rate: 73 P: 29 FL: 143 QRS: -14 QRSD: 86 T: 19 QT: 388 QTc: 428 Interpretive Statements Sinus rhythm Atrial premature complex Low voltage, precordial leads Consider anterior infarct Compared to ECG 03/12/2018 10:59:50 Myocardial infarct finding now present Electronically Signed On 04-15-2018 16:16:09 PST by Bryanna Braswell MD CM:EKGRPT:ELECTROCARDIOGRAM REPORT 1624 1616 TAMMY PELAYO EPIPHANY DRAFT REPORT TAMMY PELAYO
[~2018-04-14 09:14] MED LIST changes: -B12,B-12,B 12500 MC1 PO; -MIDODRINE HCL5 M1 PO
[2018-04-14 10:06] LABS: BASO % 0.6 % (0.0-1.0); EOS # 0.3 10*3/uL (0.0-0.4); HEMATOCRIT 36.9 % (37.0-47.0); HEMOGLOBIN 11.6 g/dl (12.0-16.0); LYMPH # 2.1 10*3/uL (1.3-4.4); MEAN CELL VOLUME 101.1 fl (81.0-99.0); MEAN CORPUSCULAR HGB 31.8 pg (27.0-31.0); MEAN CORPUSCULAR HGB CONC 31.4 g/dl (33.0-37.0); MEAN PLATELET VOLUME 10.1 fl (9.6-12.3); MONO # 0.5 10*3/uL (0.1-1.0); MONO % 6.9 % (3.0-9.0); NEUT # 3.9 10*3/uL (2.3-7.9); NEUT % 57.2 % (47.0-73.0); PLATELET COUNT AUTOMATED 195 10*3/uL (130-400); RED BLOOD COUNT 3.65 10*6/uL (4.10-5.10); RED CELL DISTRI WIDTH 12.6 % (0-14.5); WHITE BLOOD COUNT 6.9 10*3/uL (4.8-10.8)
[2018-04-14 10:25] LABS: ACT PARTIAL THROMBO TIME 24.4 SECONDS (20.8-31.5)
[2018-04-14 10:26] LABS: ALBUMIN 2.8 gm/dl (3.1-4.5); ALKALINE PHOSPHATASE 59 U/L (45-117); BUN 21 mg/dl (7-24); CHLORIDE 112 mmol/L (98-107); CREATININE 0.93 mg/dL (0.55-1.02); POTASSIUM 3.8 mmol/L (3.5-5.1); SGOT/AST 13 IU/L (3-35); SGPT/ALT 10 U/L (12-78); SODIUM 141 mmol/L (136-145); TOTAL PROTEIN 5.8 gm/dL (6.4-8.2)
[2018-04-14 10:28] LABS: TROPONIN I < 0.015 ng/ml (<0.045)
--- NOTE | 2018-04-14 12:52 | NUR ---
A 88, admitted to 5E, under the services of ALICE Jones DO with a diagnosis of FREQUEST FALLS, LACERATION TO HEAD, GENERALIZED WEAKNESS. Chief complaint is FALL. Patient arrived via ambulance from ER. Monitor applied. Initial assessment completed. Vital signs taken and recorded. ALICE JONES DO notified of admission to the unit. Orders received. See assessment for past medical history, medications and allergies. Patient and/or family oriented to unit. [facility] visitation policy reviewed. Clothing/patient valuable form completed. TIKI VAZQUEZ
--- NOTE | 2018-04-14 13:11 | NUR ---
MED REC UPDATED WITH PT AT BEDSIDE. PT KNEW ALL MEDS. STATES SHE ONLY TAKES 4 MEDICATIONS.
--- NOTE | 2018-04-14 16:04 | NUR ---
ORTHOS (+) DR DAVIS NOTIFIED
--- NOTE | 2018-04-14 22:49 | NUR ---
Medicated with Tylenol po prn for c/o headache. Will monitor effectiveness. Call light within reach.
[2018-04-15] VITALS: BP 116/53
--- NOTE | 2018-04-15 02:06 | NUR ---
24 HR chart check completed.
[2018-04-15 07:46] LABS: CREATININE 1.06 mg/dL (0.55-1.02); PHOSPHOROUS 2.9 mg/dL (2.5-4.9); POTASSIUM 4.4 mmol/L (3.5-5.1)
[2018-04-15 07:48] LABS: BASO % 0.3 % (0.0-1.0); EOS # 0.2 10*3/uL (0.0-0.4); LYMPH # 1.8 10*3/uL (1.3-4.4); LYMPH % 26.2 % (27.0-41.0); MEAN CORPUSCULAR HGB CONC 30.1 g/dl (33.0-37.0); MEAN PLATELET VOLUME 10.7 fl (9.6-12.3); MONO # 0.5 10*3/uL (0.1-1.0); MONO % 7.5 % (3.0-9.0); NEUT # 4.3 10*3/uL (2.3-7.9); NEUT % 62.7 % (47.0-73.0); PLATELET COUNT AUTOMATED 162 10*3/uL (130-400); RED BLOOD COUNT 2.97 10*6/uL (4.10-5.10); RED CELL DISTRI WIDTH 12.7 % (0-14.5); WHITE BLOOD COUNT 6.9 10*3/uL (4.8-10.8)
[2018-04-15 07:53] LABS: HEMOGLOBIN 9.2 g/dl (12.0-16.0)
[2018-04-15 07:54] LABS: HEMATOCRIT 30.6 % (37.0-47.0)
[2018-04-15 08:00] VITALS: BP 100/46
--- NOTE | 2018-04-15 08:13 | NUR ---
PHYSICAL THERAPY Nursing screen received. PT orders also received. Thank you. Analia Gonzales,PT
--- NOTE | 2018-04-15 08:23 | NUR ---
Nursing referral and Occupational Therapy referral received. Thank you. Crystal Darby OTR/l
--- NOTE | 2018-04-15 10:10 | NUR ---
PHYSICAL THERAPY PAtient evaluated on 5, full evaluation to follow. Continue with PT as per plan of care with fall, NWB LUE distal and alarm precautions. Recommend SNF. PAtient is high complexity via chart review, tests and evaluation: 93160. Thank you for this referral. Analia Gonzales,PT
--- NOTE | 2018-04-15 11:08 | NUR ---
ORTHOSTATIC BLOOD PRESSURE COMPLETED. SUPINE: 100/40, PULSE 76 SITTIN/40, PULSE 82 STANDING: UNABLE TO TOLERATE PT IS SYMPTOMATIC NOT BEING ABLE TO TOLERATE STANDING. DOCTOR MK NOTIFED. IV FLUIS 0.9NS MAINTENCE FLUIDS INFUSING PER ORDER. ALSO INFORMED OF PT'S REDNESS TO BILATERAL UNDER BREASTS, NYSTATIN CREAM BID TO BE ORDERED.
--- NOTE | 2018-04-15 11:34 | NUR ---
Certified Nurses Aide in to talk to patient. Patient states lives at HOME with ALONE. There are SOME steps in the home. Physician: JOSEPH Pharmacy: [facility] Home health services: [facility] SHE THINKS Patient's level of ADLs: MODERATE ASSIST Patient has working utilities: YES DME: [facility] Follow-up physician's appointment after d/c: WILL BE MADE BY HOSPITALIST NURSE DIRECTOR ON DISCAHRGE Does patient want to access PORTAL?: N Discharge plan PT STATES SHE LIVES AT HOME ALONE. TALKED TO HER ABOUT HOME HEALTH, STATES SHE ALREADY HAS IT AND THINKS IT IS WITH [facility]. ALSO TALKED TO HER ABOUT SKILLED CARE AND THAT HER INSURANCE W[place] ONLY C[place], PT STATES SHE WILL NOT GO THERE IT IS TOO FAR AWAY. STATES SHE WAS AT [facility] BEFORE BUT SHE HAS CHANGED INSURANCE SINCE THEN. WILL CONTINUE TO FOLLOW.. ANGEL AMEZCUA
--- NOTE | 2018-04-15 11:39 | NUR ---
Occupational Therapy evaluation completed on 5 with full eval to follow. Precautions include fall risk, hx multiple falls, platform walker use since left distal radius fx, left wrist brace, high complexity level via chart review, testing and evaluation.Recommend OT per POC and strongly encourage SNF as patient would not be safe at home alone. Thank you. Crystal Armstrong OTR/L
[2018-04-15 12:00] VITALS: BP 100/40
--- NOTE | 2018-04-15 12:22 | NUR ---
BACK TO ROOM TO TALK WITH PT AFTER PT SAID SHE DID NOT DO WELL WITH THEM. PT STATES I DIDN'T WANT TO GET UP THATS WHY I DID NOT DO WELL, I AM NOT GOING TO [place]. EXPAINED SHE NEEDED TO WORK WITH PT SO SHE CAN GO HOME.
--- NOTE | 2018-04-15 12:58 | NUR ---
ANETTE QUINTANA [id number] Please refer to the physician's history and physical for past medical history, comorbid conditions, and allergies. Diagnosis: FALL AT HOME,GENERAL WEAKNESS,SCALP LACERATION Lito Score: 16,AT RISK WOUND DESCRIPTIONS: Location of the wound: Left side of scalp Type of wound: laceration Thickness: Partial Size: 5.5cm x 1.5cm x <0.1cm Tunneling: none Undermining: none Sinus Tract: none Presence of Exudate: none Amount: None Color: Red Odor: None Periwound Skin Appearance: Normal Wound edges: approximated with 7 phil Pain (associated with wound): none at time of assessment How does patient state this happened? pt stated she feel and hit the side of a heater. Surface the patient is resting on: Position Pro SKIN PREVENTION RECOMMENDATION: 1. Pressure redistribution support surface as appropriate 2. Elevate heels 3. Remove boots/TEDS every shift and reapply 4. Head of bed 30 degrees as tolerated 5. Assess nutrition and hydration 6. Manage moisture 7. Avoid the use of containment devices while in bed 8. Use absorptive products on surfaces limit layers of linens on bed 9. Turn and reposition every 1-2 hours in bed and every 1 hour in chair as tolerated 10. Weight shifts every 15 minutes while up in chair 11. Offloading with pillows or device to keep heels elevated off bed 12. Monitor skin at least every shift 13. Inspect under medical devices twice a day WOUND TREATMENT RECOMMENDATIONS: d/c aquacel treatment.
--- NOTE | 2018-04-15 13:31 | NUR ---
Dr. Stout notified of wound care recommendations.
--- NOTE | 2018-04-15 13:35 | NUR ---
SPEECH PATHOLOGY Nursing screen completed. Speech pathology services are not indicated at this time however this dept. will remain available should future needs present. KATHERYN PISANO MSCCC-PLASTIC EYE TECHNICIAN
[2018-04-15 16:00] VITALS: BP 108/43
[2018-04-15 20:00] VITALS: BP 114/49
--- NOTE | 2018-04-15 20:23 | NUR ---
1999 RESTING IN BED WATCHING TV. ALERT AND PLEASANT. IV FLUIDS CONT. NO DISTRESS NOTED. ALEXANDR INTACT TO L SCALP LACERATION.
--- NOTE | 2018-04-15 21:32 | NUR ---
PT REQUESTED THAT MIDDLE FINGER AND RING FINGER OF LEFT HAND BE SPLINTED WITH PADDED TONGUE BLADES. FINGERS WERE PREVIOUSLY TAPED TOGETHER. STATES " THAT REALLY HELPS"
--- NOTE | 2018-04-15 22:18 | NUR ---
RESTING IN BED WATCHING TV. NO C/O'S VOICED. IV FLUIDS CONT.
[2018-04-16] VITALS: BP 114/42
--- NOTE | 2018-04-16 | NUR ---
SLEEPING, AWAKENS EASILY. RESPIRATIONS EASY. LUNGS DIMINISHED. PULSE OX 94% RA. IV FLUIDS INFUSING. CALL LIGHT WITHIN REACH., BED ALARM MAINTAINED FOR SAFETY
[2018-04-16 06:15] LABS: BASO % 0.6 % (0.0-1.0); EOS # 0.5 10*3/uL (0.0-0.4); EOS % 8.2 % (1.0-4.0); HEMATOCRIT 29.7 % (37.0-47.0); HEMOGLOBIN 9.1 g/dl (12.0-16.0); LYMPH # 1.9 10*3/uL (1.3-4.4); LYMPH % 28.7 % (27.0-41.0); MEAN CELL VOLUME 102.1 fl (81.0-99.0); MEAN CORPUSCULAR HGB 31.3 pg (27.0-31.0); MEAN CORPUSCULAR HGB CONC 30.6 g/dl (33.0-37.0); MEAN PLATELET VOLUME 10.5 fl (9.6-12.3); MONO # 0.5 10*3/uL (0.1-1.0); NEUT # 3.6 10*3/uL (2.3-7.9); NEUT % 55.2 % (47.0-73.0); PLATELET COUNT AUTOMATED 151 10*3/uL (130-400); RED BLOOD COUNT 2.91 10*6/uL (4.10-5.10); RED CELL DISTRI WIDTH 12.8 % (0-14.5); WHITE BLOOD COUNT 6.6 10*3/uL (4.8-10.8)
[2018-04-16 06:43] LABS: BUN 18 mg/dl (7-24); CHLORIDE 114 mmol/L (98-107); CREATININE 0.89 mg/dL (0.55-1.02); POTASSIUM 4.4 mmol/L (3.5-5.1); SODIUM 143 mmol/L (136-145)
--- NOTE | 2018-04-16 10:49 | NUR ---
IVF dc at this time per orders.
--- NOTE | 2018-04-16 11:00 | NUR ---
OT NOTE Pt was seen this A.M. 1:1 for 15 minute OT session. Upon arrival pt was supine in bed, pt identified by name and . Pt had complaints of 2/10 L hip pain. Pt transferred supine to sit EOB with modA for assist with UB. Pt then completed sit to stand transfers from bed level with modA where her static standing tolerance was challenged for increased I in self care tasks and functional transfers. Pt was was able to tolerate aprox 2 minutes at a time before sitting due to fatigue. Pt completed stand pivot to [facility]iner [facility] [employer]LYT[employer] FACULTY MEMBER where she was left sitting upright with call light in hand, trya table in place, and body alarm on for safety. Continue with rec D/C plan to SNF. NASH Contreras/Valerie
[2018-04-16 12:00] VITALS: BP 118/62
--- NOTE | 2018-04-16 12:30 | NUR ---
ATTEMPTED TO CALL DAUGHTER AT BOTH NUMBERS LISTED, NO ANSWER. LEFT MESSAGE FOR HER TO CALL ME BACK.
--- NOTE | 2018-04-16 12:46 | NUR ---
Patient is requesting that Dr. Joiner remove her phil when she is discharged. Griselda Jones RN in hospitalists office made aware.
[2018-04-16 13:14] LABS: BILIRUBIN NEGATIVE (NEGATIVE); BLOOD NEGATIVE (NEGATIVE); CLARITY SL CLOUDY (CLEAR); COLOR YELLOW (YELLOW); GLUCOSE NEGATIVE (NEGATIVE); KETONE NEGATIVE (NEGATIVE); LEUKO ESTERASE 2+ (NEGATIVE); NITRITE POSITIVE (NEGATIVE); PH 5.5 (5.0-9.0); SPECIFIC GRAVITY <= 1.005 (1.005-1.030); UROBILINOGEN 0.2 E.U./dl (0.2-1.0)
--- NOTE | 2018-04-16 13:20 | NUR ---
TALKED TO PT AGAIN ABOUT SKILLED CARE WHICH SHE REFUSES OR ABOUT HOME HEALTH, WHICH SHE STATES SHE ALREADY HAS BUT CAN NOT TELL ME THE NAME OF IT. SHE CONTINUES TO REFUSE BOTH. WILL CONTINUE TO FOLLOW. STILL WAITING RETURN CALL FROM DAUGHTER.
[2018-04-16 13:23] LABS: BACTERIA 3+; WBC TNTC wbc/hpf (0-5)
--- NOTE | 2018-04-16 14:24 | NUR ---
PHYSICAL THERAPY Patient seen this am 1:1 for therapy visit and was supine in bed upon therapist arrival. Patient voices L side upper / lower pain from recent fall, 2/10 at rest and transfers supine to sit EOB with Mod/Max A. Patient tolerates EOB sit x 3 minutes, SBA, then performed several sit to stand transfers Mod/DIRECTOR SEARCH MARKETING STRATEGIES. Patient completed SPT to bedside chair, including several forward / side steps, DIRECTOR SEARCH MARKETING STRATEGIES/Mod, demonstrating Poor upright posture and increased c/o pain L hip, L shoulder area 6/10 during standing activities. Patient remained in bedside chair with call light, tray table, telephone and body alarm for safety. Will continue per POC as tolerated, total treatment time 14 minutes. Jamir Remy, CATERING COOK
--- NOTE | 2018-04-16 15:01 | NUR ---
Patient requesting [facility] upon discharge. Received order and faxed referral, notified [facility] patient discharged today.
[2018-04-16 16:00] VITALS: BP 102/38
[2018-04-16 20:00] VITALS: BP 106/40
[2018-04-17] VITALS: BP 110/45
[2018-04-17 06:15] LABS: BASO % 0.6 % (0.0-1.0); EOS # 0.6 10*3/uL (0.0-0.4); EOS % 7.9 % (1.0-4.0); HEMATOCRIT 28.7 % (37.0-47.0); HEMOGLOBIN 8.9 g/dl (12.0-16.0); LYMPH # 1.8 10*3/uL (1.3-4.4); LYMPH % 24.3 % (27.0-41.0); MEAN CELL VOLUME 101.8 fl (81.0-99.0); MEAN CORPUSCULAR HGB 31.6 pg (27.0-31.0); MEAN PLATELET VOLUME 10.8 fl (9.6-12.3); MONO # 0.5 10*3/uL (0.1-1.0); MONO % 7.1 % (3.0-9.0); NEUT # 4.3 10*3/uL (2.3-7.9); NEUT % 59.8 % (47.0-73.0); PLATELET COUNT AUTOMATED 165 10*3/uL (130-400); RED BLOOD COUNT 2.82 10*6/uL (4.10-5.10); RED CELL DISTRI WIDTH 12.9 % (0-14.5); WHITE BLOOD COUNT 7.2 10*3/uL (4.8-10.8)
--- NOTE | 2018-04-17 10:47 | NUR ---
PHYSICAL THERAPY PT SITTING IN CHAIR UPON ARRIVAL WITH YOAN JANNETTELOBO OF HER. PT IDENTIFIED BY NAME AND . PT REPORTS THAT SHE WOULD LIEK TO SEE HER DOCTOR AND WOULD LIKE TO NO DO THERAPY TODAY. EDUCATED PT ON THE IMPORANCE OF THERAPY AND PT STATED " I JUST WANT TO GO HOME AND HAVE REMI DO MY THERAPY. PLEASE NOT TODAY." JENNIFER THAKUR HOCKEY INSTRUCTOR
[2018-04-17] MEDS ORDERED: CEFUROXIME AXE250 MG PO (11:22)
[2018-04-17] MEDS ORDERED: B12,B-12,B 12500 MC1 PO (11:22)
[2018-04-17] MEDS ORDERED: MIDODRINE HCL5 M1 PO (11:24)
--- NOTE | 2018-04-17 11:44 | NUR ---
Notified Dr. Felipe resident with Dr. Vasquez of bp sitting and standing of 120/62 and 120/58. Also notified him that pt is having difficulty finding a ride to home and that she has no money to pickle cutter prescriptions.
--- NOTE | 2018-04-17 11:56 | NUR ---
I reached pt sort supervisor Luis Armando Fong who states he is available to grain picker pt and he can help her get medications from pharmacy. He gave me his cell phone to call when pt is all ready to leave. Notified pt.
[2018-04-17 12:00] VITALS: BP 120/62
--- NOTE | 2018-04-17 12:13 | NUR ---
Pharmacy called and states that they do not have midodrine. It is ordered and they expect it to be here on Thursday. States they do not have any, even enough to give pt some to last through weekend. Notified Dr. Felipe and he said ok to DC without. States bp is stable and pt is ok to leave and picking supervisor on thursday.
--- NOTE | 2018-04-17 12:30 | NUR ---
Spoke with Luis Armando Fong states he will be here to slate picker pt. States he will come to room. Pt dressed and dc instructions reviewed with pt, verbalized understanding of instructions. Aware she is to return to slate picker midodrine on thursday.
--- NOTE | 2018-04-17 13:15 | NUR ---
Kev in care of her cadence specialists Luis Armando Fong with belongings. Pt to go to pharmacy to tile picker medications and both she and Mr Fong aware of this. Assisted by Yumiko Kruse RN.
--- NOTE | 2018-04-19 07:57 | NUR ---
OCCUPATIONAL THERAPY CO-SIGN I approve of the Occupational Therapy notes written above. ANGELICA AGUILA
--- NOTE | 2018-04-20 14:09 | NUR ---
Patients daughter Analia called concerning patient being home alone and wanted to discuss more options. Patient already has [employer] services in place, 3 hours in the AM and 3 hours at night. She has all 3 meals delivered to her residence. She also has [facility] nursing, PT and OT. Daughter asked about local assisted living's that take medicaid, I gave her the number for [facility] I also instructed her to call [employer] [facility] and see about getting patients hours increased for her aides in the morning or evening. Gave daughter my name and number and instructed her to call if she had anymore questions.
--- NOTE | 2018-04-26 08:11 | NUR ---
PHYSICAL THERAPY CO-SIGN I approve of the Phyical Therapy notes written above. DICK ROGERS PT
== END 2018-04-17 13:15 | disposition home health service (06) | DRG 604 ==
LOC: ED 09:14 → 5E 11:33 → EDHOLD 11:33 → 5E 12:01
PROVIDERS: Emergency Medicine; Internal Medicine; Registered Nurse; Student in an Organized Health Care Education/Training Program; ADMIT Internal Medicine
PROC: 0HQ0XZZ Repair Scalp Skin, External Approach (ICD-10-PCS; principal; 2018-04-14)
DX: S01.01XA Laceration without foreign body of scalp, initial encounter (principal); E43 Unspecified severe protein-calorie malnutrition; N39.0 Urinary tract infection, site not specified; W19.XXXA Unspecified fall, initial encounter; I95.1 Orthostatic hypotension; E86.0 Dehydration; E87.8 Other disorders of electrolyte and fluid balance, not elsewhere classified; E66.9 Obesity, unspecified; R73.9 Hyperglycemia, unspecified; D53.9 Nutritional anemia, unspecified; Z96.653 Presence of artificial knee joint, bilateral; G20 Parkinson's disease; K21.9 Gastro-esophageal reflux disease without esophagitis; I48.0 Paroxysmal atrial fibrillation; K57.90 Diverticulosis of intestine, part unspecified, without perforation or abscess without bleeding; Z96.642 Presence of left artificial hip joint; N18.3 Chronic kidney disease, stage 3 (moderate); Y92.009 Unspecified place in unspecified non-institutional (private) residence as the place of occurrence of the external cause; Y99.8 Other external cause status; Z88.0 Allergy status to penicillin; Z88.2 Allergy status to sulfonamides; Z79.899 Other long term (current) drug therapy; Z90.49 Acquired absence of other specified parts of digestive tract; Y93.89 Activity, other specified; Z90.710 Acquired absence of both cervix and uterus; Z82.49 Family history of ischemic heart disease and other diseases of the circulatory system; Z83.3 Family history of diabetes mellitus; Z82.3 Family history of stroke; Z68.31 Body mass index [BMI] 31.0-31.9, adult

== ENCOUNTER → 2018-04-21 | Outpatient (CLI) | payer OTHER ==
[~2018-04-21] MED LIST changes: +B12,B-12,B 12500 MC1 PO; +MIDODRINE HCL5 M1 PO
== END | disposition home or self-care (01) ==
LOC: ORTHO 02:16
DX: S62.102D Fracture of unspecified carpal bone, left wrist, subsequent encounter for fracture with routine healing (principal); M81.0 Age-related osteoporosis without current pathological fracture; M19.012 Primary osteoarthritis, left shoulder; W19.XXXD Unspecified fall, subsequent encounter; X58.XXXD Exposure to other specified factors, subsequent encounter

== ENCOUNTER 2019-01-11 15:12 | Emergency (ER) | payer MEDICARE ==
[~2019-01-11] VITALS: Ht 160 cm; Wt 86.2 kg
[2019-01-11 16:09] VITALS: BP 161/59
== END 2019-01-11 18:20 | disposition home or self-care (01) ==
LOC: ED 15:12
DX: S00.01XA Abrasion of scalp, initial encounter (principal); G89.29 Other chronic pain; Z88.0 Allergy status to penicillin; Z88.2 Allergy status to sulfonamides; Z79.899 Other long term (current) drug therapy; Z90.710 Acquired absence of both cervix and uterus; Z90.49 Acquired absence of other specified parts of digestive tract; W01.198A Fall on same level from slipping, tripping and stumbling with subsequent striking against other object, initial encounter; Y93.89 Activity, other specified; Y92.238 Other place in hospital as the place of occurrence of the external cause; Y99.8 Other external cause status